=== PATIENT | female | born 1950 | race Caucasian/White ===

== ENCOUNTER 2021-12-11 08:41 | Inpatient (IN) ==
--- NOTE | 2021-12-11 08:54 | Emergency Department Note ---
Extremity Problem HPI General Chief complaint: Trauma Stated complaint: Fall, left foot rotation Time Seen by Provider: 12/11/21 08:51 Source: EMS Mode of arrival: EMS Limitations: no limitations History of Present Illness HPI Narrative: Narrative: Patient presents to the emergency department with left hip pain. She reports she tripped last night and fell on her left side she complains of pain in the left elbow and left hip. Denies hitting her head or loss of consciousness she denies headache. She is not on any anticoagulation. Her pain is 10 out of 10. Pain is nonradiating she is unable to bear weight. She states she did not come in to the hospital last night because she does not like hospitals. Patient reports she drinks 2 to 3 glasses of wine a night and 3-4 shots of kevin. No history of alcohol withdrawal symptoms or seizures. Related Data Home Medications Medication Instructions Recorded Confirmed metoprolol succinate 25 mg 25 mg PO DAILY 07/26/19 12/11/21 tablet,extended release 24 hr tramadol 50 mg tablet 1 - 2 tab PO Q4-6HP PRN Pain 12/11/21 12/11/21 Allergies Allergy/AdvReac Type Severity Reaction Status Date / Time No Known Drug Allergies Allergy Unverified 02/08/17 13:52 Review of Systems ROS ROS Narrative: Narrative: All systems ED: reviewed and negative except as stated. [facility] Narrative Patient History Narrative: Narrative: Medical/Surgical/Family History All Active Problems (Updated 12/11/21 @ 13:08 by Mahendra Blanco MD) Macrocytic anemia (Acute) Closed intertrochanteric fracture of left femur (Acute) Closed olecranon fracture (Acute) Social History Smoking Status: Unknown if ever smoked Exam Narrative Narrative: Narrative: Vital signs noted General: Awake. Alert. Mild distress HEENT: NCAT PERRL EOMI. No conjunctivitis. Membranes moist. Neck: Supple, trachea midline Cardiovascular: RRR. No murmur. No rubs. No gallops. Respiratory: No respiratory distress. Breath sounds equal. Lungs clear. Gastrointestinal: Soft. No tenderness Musculoskeletal: Pain to palpation of the left hip, swelling of the left elbow, no tenderness to the left wrist Skin: Warm. Dry. No rash Neurologic: Alert and oriented x3 moves all extremities equally and fully, speech is fluent face is symmetric General Limitations: no limitations Course Vital Signs Vital signs: Vital Signs Temperature 98.1 F 12/11/21 08:45 Pulse Rate 117 H 12/11/21 08:45 Respiratory Rate 20 12/11/21 08:45 Blood Pressure 143/92 12/11/21 08:45 Pulse Oximetry (%) 97 12/11/21 08:45 Oxygen Delivery Method 12/11/21 08:45 Temperature 98.1 F 12/11/21 11:39 Pulse Rate 82 12/11/21 11:39 Respiratory Rate 18 12/11/21 11:39 Blood Pressure 125/75 12/11/21 11:39 Pulse Oximetry (%) 100 12/11/21 11:39 Oxygen Delivery Method 12/11/21 11:38 MDM MDM Narrative Medical decision making narrative: Narrative: Patient was found to have left intertrochanteric fracture and transversely oriented intra-articular fracture involving the olecranon of the proximal ulna. Patient's labs are consistent with a macrocytic anemia. She has not had labs obtained in the last 2 years appears to be slightly decreased from her baseline. Spoke with Dr. Tarango, patient will be admitted to the hospitalist. Lab Data Result diagrams: 12/11/21 09:01 12/11/21 09:01 Labs: Lab Results 12/11/21 12/11/21 12/11/21 Range/Units 09: 09:01 10:03 WBC 7.5 (4.5-11.0) K/mcL RBC 1.91 L (3.59-5.38) M/mcL Hgb 8.6 L (11.2-15.7) g/dL Hct 25.8 L (34.1-44.9) % MCV 135.1 H (80.0-100.0) fL MCH 45.0 H (26.0-34.0) pg MCHC 33.3 (31.0-36.0) g/dL RDW 15.6 H (11.5-14.5) % Plt Count 157 (140-440) K/mcL MPV 10.6 H (7.4-10.4) fL Immature Gran % (Auto) 0.3 (0.0-0.5) % Neut % (Auto) 78.4 H (38.0-78.0) % Lymph % (Auto) 12.7 L (15.5-49.0) % [place] % (Auto) 7.2 (1.0-12.0) % Eos % (Auto) 0.5 (0.0-7.0) % Baso % (Auto) 0.9 (0.0-2.0) % Lymph # (Auto) 0.96 L (1.50-4.80) K/mcL [place] # (Auto) 0.54 (0.10-0.90) K/mcL Eos # (Auto) 0.04 (0.00-0.70) K/mcL Baso # (Auto) 0.07 (0.00-0.30) K/mcL Immature Gran # 0.02 (0.00-0.05) K/mcl Absolute Neutrophils 5.90 (1.80-8.00) K/mcL PT (11.9-14.5) sec INR (0.9-1.1) Sodium 127 L (133-145) mmol/L Potassium 4.8 (3.3-5.1) mmol/L Chloride 97 (96-108) mmol/L Carbon Dioxide 16 L (22-30) mmol/L Anion Gap 14.0 (8.0-16.0) BUN 11 (8-23) mg/dL Creatinine 1.1 (0.6-1.1) mg/dL GFR Calculation 50 Glucose 98 (70-105) mg/dL Osmolality (280-300) mOSM/kg Uric Acid (2.5-8.0) mg/dL Calcium 8.1 L (8.6-10.4) mg/dL Total Bilirubin 0.4 (0.1-1.0) mg/dL AST 35 H (<32) U/L ALT 22 (<40) U/L Alkaline Phosphatase 104 (39-117) U/L Total Protein 5.6 L (5.9-8.4) gm/dL Albumin 2.9 L (3.2-5.2) gm/dL Globulin 2.7 (2.2-3.7) gm/dL Albumin/Globulin Ratio 1.1 (1.0-2.3) Vitamin B12 457.9 (232.0-1245.0) pg/mL Folate (4.2-19.9) ng/mL Urine Color Urine Appearance (Clear) Urine pH (5.0-9.0) Ur Specific [place] (1.000-1.035) Urine Protein (Negative) mg/dL Urine Glucose (UA) (Negative) mg/dL Urine Ketones (Negative) mg/dL Urine Occult Blood (Negative) vimal/mcL Urine Nitrate (Negative) Urine Bilirubin (Negative) mg/dL Urine Urobilinogen mg/dL Ur Leukocyte Esterase (Negative) /uL Urine RBC (0-3) /hpf Urine WBC (0-4) /hpf Ur Squamous Epith Cells (0-4) /hpf Urine Bacteria (0) /hpf Ur Culture Indicated? Urine Osmolality (80-1000) mOSM/kg Ur Random Creatinine (28.0-217.0) mg/dL Ur Random Sodium mmol/L 12/11/21 12/11/21 12/11/21 Range/Units 10:03 10:03 10:20 WBC (4.5-11.0) K/mcL RBC (3.59-5.38) M/mcL Hgb (11.2-15.7) g/dL Hct (34.1-44.9) % MCV (80.0-100.0) fL MCH (26.0-34.0) pg MCHC (31.0-36.0) g/dL RDW (11.5-14.5) % Plt Count (140-440) K/mcL MPV (7.4-10.4) fL Immature Gran % (Auto) (0.0-0.5) % Neut % (Auto) (38.0-78.0) % Lymph % (Auto) (15.5-49.0) % [place] % (Auto) (1.0-12.0) % Eos % (Auto) (0.0-7.0) % Baso % (Auto) (0.0-2.0) % Lymph # (Auto) (1.50-4.80) K/mcL [place] # (Auto) (0.10-0.90) K/mcL Eos # (Auto) (0.00-0.70) K/mcL Baso # (Auto) (0.00-0.30) K/mcL Immature Gran # (0.00-0.05) K/mcl Absolute Neutrophils (1.80-8.00) K/mcL PT 14.4 (11.9-14.5) sec INR 1.1 (0.9-1.1) Sodium (133-145) mmol/L Potassium (3.3-5.1) mmol/L Chloride (96-108) mmol/L Carbon Dioxide (22-30) mmol/L Anion Gap (8.0-16.0) BUN (8-23) mg/dL Creatinine (0.6-1.1) mg/dL GFR Calculation Glucose (70-105) mg/dL Osmolality (280-300) mOSM/kg Uric Acid (2.5-8.0) mg/dL Calcium (8.6-10.4) mg/dL Total Bilirubin (0.1-1.0) mg/dL AST (<32) U/L ALT (<40) U/L Alkaline Phosphatase (39-117) U/L Total Protein (5.9-8.4) gm/dL Albumin (3.2-5.2) gm/dL Globulin (2.2-3.7) gm/dL Albumin/Globulin Ratio (1.0-2.3) Vitamin B12 (232.0-1245.0) pg/mL Folate 3.1 L (4.2-19.9) ng/mL Urine Color Urine Appearance (Clear) Urine pH (5.0-9.0) Ur Specific [place] (1.000-1.035) Urine Protein (Negative) mg/dL Urine Glucose (UA) (Negative) mg/dL Urine Ketones (Negative) mg/dL Urine Occult Blood (Negative) vimal/mcL Urine Nitrate (Negative) Urine Bilirubin (Negative) mg/dL Urine Urobilinogen mg/dL Ur Leukocyte Esterase (Negative) /uL Urine RBC (0-3) /hpf Urine WBC (0-4) /hpf Ur Squamous Epith Cells (0-4) /hpf Urine Bacteria (0) /hpf Ur Culture Indicated? Urine Osmolality 430 (80-1000) mOSM/kg Ur Random Creatinine (28.0-217.0) mg/dL Ur Random Sodium 76 mmol/L 12/11/21 12/11/21 12/11/21 Range/Units 10:20 10:23 11:04 WBC (4.5-11.0) K/mcL RBC (3.59-5.38) M/mcL Hgb (11.2-15.7) g/dL Hct (34.1-44.9) % MCV (80.0-100.0) fL MCH (26.0-34.0) pg MCHC (31.0-36.0) g/dL RDW (11.5-14.5) % Plt Count (140-440) K/mcL MPV (7.4-10.4) fL Immature Gran % (Auto) (0.0-0.5) % Neut % (Auto) (38.0-78.0) % Lymph % (Auto) (15.5-49.0) % [place] % (Auto) (1.0-12.0) % Eos % (Auto) (0.0-7.0) % Baso % (Auto) (0.0-2.0) % Lymph # (Auto) (1.50-4.80) K/mcL [place] # (Auto) (0.10-0.90) K/mcL Eos # (Auto) (0.00-0.70) K/mcL Baso # (Auto) (0.00-0.30) K/mcL Immature Gran # (0.00-0.05) K/mcl Absolute Neutrophils (1.80-8.00) K/mcL PT (11.9-14.5) sec INR (0.9-1.1) Sodium (133-145) mmol/L Potassium (3.3-5.1) mmol/L Chloride (96-108) mmol/L Carbon Dioxide (22-30) mmol/L Anion Gap (8.0-16.0) BUN (8-23) mg/dL Creatinine (0.6-1.1) mg/dL GFR Calculation Glucose (70-105) mg/dL Osmolality 281 (280-300) mOSM/kg Uric Acid 7.3 (2.5-8.0) mg/dL Calcium (8.6-10.4) mg/dL Total Bilirubin (0.1-1.0) mg/dL AST (<32) U/L ALT (<40) U/L Alkaline Phosphatase (39-117) U/L Total Protein (5.9-8.4) gm/dL Albumin (3.2-5.2) gm/dL Globulin (2.2-3.7) gm/dL Albumin/Globulin Ratio (1.0-2.3) Vitamin B12 (232.0-1245.0) pg/mL Folate (4.2-19.9) ng/mL Urine Color Yellow Urine Appearance Cloudy A (Clear) Urine pH >= 9.0 (5.0-9.0) Ur Specific [place] 1.010 (1.000-1.035) Urine Protein Negative (Negative) mg/dL Urine Glucose (UA) Negative (Negative) mg/dL Urine Ketones Negative (Negative) mg/dL Urine Occult Blood Trace-intact A (Negative) vimal/mcL Urine Nitrate Negative (Negative) Urine Bilirubin Negative (Negative) mg/dL Urine Urobilinogen Normal mg/dL Ur Leukocyte Esterase Negative (Negative) /uL Urine RBC 5 H (0-3) /hpf Urine WBC 1 (0-4) /hpf Ur Squamous Epith Cells 14 H (0-4) /hpf Urine Bacteria Many A (0) /hpf Ur Culture Indicated? No Urine Osmolality (80-1000) mOSM/kg Ur Random Creatinine 60.0 (28.0-217.0) mg/dL Ur Random Sodium mmol/L EKG Data EKG #1: EKG attestation: Yes I reviewed and interpreted this EKG., Yes There are no EKG findings of acute coronary syndrome and Yes This EKG will be read by manager investment EKG results narrative: EKG shows normal sinus rhythm with a rate of 86 there is borderline left axis deviation there is normal R wave progression there is no evidence of acute ische mary QTC is 437 Discharge Plan Patient/Caregiver Discharge Instructions Pt seen by VIRTUAL CUSTOMER ASSISTANT/PA only: No Clinical Impression: Closed intertrochanteric fracture of left femur, Closed olecranon fracture Patient Disposition: Xfer As Inpt ([facility]) Discharge Date/Time: 12/11/21 11:30
--- NOTE | 2021-12-11 09:29 | XRay Report ---
HISTORY: Fell, left hip injury FINDINGS: There is an acute, nondisplaced intertrochanteric fracture of the proximal left femur. There is no impaction or angulation. The femoral head and hip joint are normal. There is no underlying arthritis. Large amount calcified plaque is present in the arteries within the pelvis and thighs. IMPRESSION: Intertrochanteric fracture Interpreted and Authenticated by: Aston Arboleda 12/11/21
--- NOTE | 2021-12-11 09:30 | XRay Report ---
HISTORY: Fell, left elbow injury FINDINGS: There is an acute transversely oriented intra-articular fracture involving the olecranon of the proximal ulna. There is moderate overlying soft tissue swelling and there is also a large joint effusion. The bones are osteoporotic. No other fracture is present. Joint spaces are normal in width and alignment and there is no spur formation. IMPRESSION: Intra-articular fracture of the proximal ulna Interpreted and Authenticated by: Aston Arboleda 12/11/21
--- NOTE | 2021-12-11 09:31 | XRay Report ---
HISTORY: Fell, multiple injuries FINDINGS: Lungs are clear and well expanded. The heart size, pulmonary vasculature, mediastinum, clair and pleura are normal. There is an old healed fracture posterior laterally in the left seventh rib. No acute fracture is seen within the thorax. Severe atherosclerotic disease is seen is seen in the splenic artery. Comparison with the prior x-ray done on 11/26/16 shows little change. IMPRESSION: Normal chest Interpreted and Authenticated by: Aston Arboleda 12/11/21
[2021-12-11 09:40] LABS: Basophils # (Auto) 0.07 K/mcL (0.00-0.30); Basophils % (Auto) 0.9 % (0.0-2.0); Eosinophils # (Auto) 0.04 K/mcL (0.00-0.70); Eosinophils % (Auto) 0.5 % (0.0-7.0); Hematocrit 25.8 % (34.1-44.9); Hemoglobin 8.6 g/dL (11.2-15.7); Lymphocytes # (Auto) 0.96 K/mcL (1.50-4.80); Lymphocytes % (Auto) 12.7 % (15.5-49.0); Mean Cell Volume 135.1 fL (80.0-100.0); Mean Corpuscular HGB Conc 33.3 g/dL (31.0-36.0); Mean Platelet Volume 10.6 fL (7.4-10.4); Monocytes # (Auto) 0.54 K/mcL (0.10-0.90); Monocytes % (Auto) 7.2 % (1.0-12.0); Neutrophils % (Auto) 78.4 % (38.0-78.0); Platelet Count 157 K/mcL (140-440); RBC 1.91 M/mcL (3.59-5.38); Red Cell Distribution Width 15.6 % (11.5-14.5); WBC 7.5 K/mcL (4.5-11.0)
[2021-12-11] MEDS: HYDROmorphone 0.5 MG/0.5 ML SYRINGE IV PRN ×2 (09:48→11:27)
[2021-12-11 10:00] LABS: ALT/SGPT 22 U/L (<40); AST/SGOT 35 U/L (<32); Albumin 2.9 gm/dL (3.2-5.2); Albumin/Globulin Ratio 1.1 (1.0-2.3); Alkaline Phosphatase 104 U/L (39-117); Bilirubin,Total 0.4 mg/dL (0.1-1.0); Blood Urea Nitrogen 11 mg/dL (8-23); Calcium 8.1 mg/dL (8.6-10.4); Carbon Dioxide 16 mmol/L (22-30); Chloride 97 mmol/L (96-108); Globulin 2.7 gm/dL (2.2-3.7); Glomerular Filtration Rate 50; Glucose 98 mg/dL (70-105)
--- NOTE | 2021-12-11 10:45 | Internal Med History&Physical ---
HPI History of Present Illness Patient information: Note initiated : 12/11/21 at 10:39 am Service Date, if different from initiated Date: [] Patient: Nadia Miller a 71 y/o F admitted on for Fall, left foot rotation. Chief Complaint: [] History of present illness: Ms. Kirk Jaramillo is a 71 year old F Who presents to the ED with left hip and elbow pain. Patient states she is getting up out of her recliner to go to bed last night and got caught up in a blanket tripped and fell on her left side with immediate pain. She is slept on through the night and came in the ER because the worsening pain. Found to have a left hip fracture intertrochanteric and a left elbow fracture. Labs remarkable for anemia which is macrocytic and is chronic she has a history of MDS and follows with oncology. She has a hyponatremia which appears to be chronic and also in metabolic acidosis. Review of Systems: Pertinent positives as above. Denies headache/fever/chills/nausea/vomiting/chest or abdominal pain/cough/dyspnea/diarrhea. Remaining 10 point review of system reviewed negative PFSH PFSH All Active Problems (Updated 07/26/19 @ 21:22 by Ricco Madison PA-C) Macrocytic anemia (Acute) Social History (Updated 12/11/21 @ 10:42 by Carmelo Elizalde DO) smoking status: Current every day smoker additional history: Social history: Patient smokes half pack cigarettes per day and has 1 to 2 glasses of wine per night MEDS/ALLERGIES Home Medications and Allergies Home Medications Medication Instructions Recorded Confirmed Type Metoprolol Succinate/Hctz 02/08/17 History metoprolol succinate 25 mg 25 mg PO DAILY 07/26/19 07/26/19 History tablet,extended release 24 hr Allergies Allergy/AdvReac Type Severity Reaction Status Date / Time No Known Drug Allergies Allergy Unverified 02/08/17 13:52 EXAM Constitutional Vitals: Temp Pulse Resp BP Pulse Ox O2 Del Method 98.1 F 86 18 123/79 98 12/11/21 08:57 12/11/21 10:25 12/11/21 08:57 12/11/21 10:25 12/11/21 10:25 12/11/21 08:45 Exam: General: Alert, Awake, No acute Distress, frail and cachectic appearing Eyes/N/T: EOMI, PERRL, Head/Neck: neck supple, normocephalic atraumatic CV: RRR, No murmurs, normal s1/s2 Pulm: Clear b/l, no wheezing/rhonchi/rales Abd: soft, nontender, +BS x4 Ext: no clubbing/cyanosis/edema, swollen left elbow Neuro: Alert, no focal deficits, moves all extremities, CN 2-12 grossly intact, sensations intact b/l upper/lower Skin: warm/dry DATA Data Completed and Pending Labs: Labs from last 24 hours 12/11/21 12/11/21 12/11/21 10:23 10:03 10:03 WBC RBC Hgb Hct MCV MCH MCHC RDW Plt Count MPV Immature Gran % (Auto) Neut % (Auto) Lymph % (Auto) [place] % (Auto) Eos % (Auto) Baso % (Auto) Lymph # (Auto) [place] # (Auto) Eos # (Auto) Baso # (Auto) Immature Gran # Absolute Neutrophils PT Pending INR Pending Sodium Potassium Chloride Carbon Dioxide Anion Gap BUN Creatinine GFR Calculation Glucose Osmolality Pending Uric Acid Pending Calcium Total Bilirubin AST ALT Alkaline Phosphatase Total Protein Albumin Globulin Albumin/Globulin Ratio Vitamin B12 Folate Pending 12/11/21 12/11/21 12/11/21 10:03 09:01 09:01 WBC 7.5 RBC 1.91 L Hgb 8.6 L Hct 25.8 L MCV 135.1 H MCH 45.0 H MCHC 33.3 RDW 15.6 H Plt Count 157 MPV 10.6 H Immature Gran % (Auto) 0.3 Neut % (Auto) 78.4 H Lymph % (Auto) 12.7 L [place] % (Auto) 7.2 Eos % (Auto) 0.5 Baso % (Auto) 0.9 Lymph # (Auto) 0.96 L [place] # (Auto) 0.54 Eos # (Auto) 0.04 Baso # (Auto) 0.07 Immature Gran # 0.02 Absolute Neutrophils 5.90 PT INR Sodium 127 L Potassium 4.8 Chloride 97 Carbon Dioxide 16 L Anion Gap 14.0 BUN 11 Creatinine 1.1 GFR Calculation 50 Glucose 98 Osmolality Uric Acid Calcium 8.1 L Total Bilirubin 0.4 AST 35 H ALT 22 Alkaline Phosphatase 104 Total Protein 5.6 L Albumin 2.9 L Globulin 2.7 Albumin/Globulin Ratio 1.1 Vitamin B12 Pending Folate A/P Narrative A/P Narrative: A: *Left hip & elbow fracture: *MDS with macrocytic anemia: Follows with director of compliance -get Retacrit infusions outpatient *Hyponatremia, chronic: *CKD III: *HTN: *Protein calorie malnutrition: Loss of subcutaneous fat and muscle *Tobacco abuse: P: -Hip and elbow per Ortho -Urine studies for hyponatremia -Monitor sodium. -Transfuse blood for < 7 -Continue home BB -Smoking cessation counseling> 3 minutes -PT/OT -Medication reconciliation -ppx: SCD and postop per Ortho Time Spent With Patient Time: Total time spent is greater than 50% in coordination of care (as documented) at patient's floor/unit and/or counseling patient: Total time spent with greater than 50% in coordination of care (as documented) at patient's floor/unit and/or counseling patient:: 50 - 70 minutes
[2021-12-11 11:02] LABS: INR 1.1 (0.9-1.1); Prothrombin Time 14.4 sec (11.9-14.5)
[2021-12-11 11:26] LABS: Appearance,Urine Cloudy (Clear); Bacteria,Urine MANY /hpf (0); Bilirubin,Urine Negative (Negative); Color,Urine Yellow; Culture Indicated,Urine No; Glucose,Urine (UA) Negative (Negative); Ketones,Urine Negative (Negative); Leukocyte Esterase,Urine Negative /uL (Negative); Nitrate,Urine Negative (Negative); PH,Urine >= 9.0 (5.0-9.0); Protein,Urine Negative (Negative); Urine Blood Trace-intact ery/mcL (Negative); Urine RBC 5 /hpf (0-3); Urine Squamous Epithelial Cell 14 /hpf (0-4); Urine WBC 1 /hpf (0-4); Urobilinogen,Urine Normal
[2021-12-11 11:33] LABS: Sodium, Urine Random 76 mmol/L
[2021-12-11 11:38] LABS: Osmolality,Urine 430 mOSM/kg (80-1000)
[2021-12-11] MEDS ORDERED: MAGNESIUM SULFATE 2 GM/50 ML BAG IV PRN (11:38)
[2021-12-11] MEDS ORDERED: ONDANSETRON 4 MG/2 ML VIAL IV PRN ×2 (11:38→14:52)
[2021-12-11] MEDS ORDERED: POTASSIUM CHLORIDE 20 MEQ TABLET PO PRN ×2 (11:38)
[2021-12-11] MEDS ORDERED: POTASSIUM CHLORIDE 40 MEQ in DEXTROSE 5% IN WATER 500 ML IV PRN (11:38)
[2021-12-11] MEDS ORDERED: SENNOSIDES 1 TABLET PO PRN (11:38)
[2021-12-11] MEDS ORDERED: 0.9 % SODIUM CHLORIDE 1,000 ML IV SCH (11:38)
[2021-12-11 12:41] LABS: Uric Acid 7.3 mg/dL (2.5-8.0)
[2021-12-11] MEDS ORDERED: ceFAZolin 1 GM VIAL IV ONE (13:05)
[2021-12-11] MEDS ORDERED: fentaNYL 100 MCG/2 ML VIAL IV ONE (13:20)
[2021-12-11] MEDS ORDERED: TRANEXAMIC ACID 1,000 MG/10 ML VIAL ONE (13:20)
[2021-12-11] MEDS ORDERED: DEXAMETHASONE 10 MG/ML VIAL ONE (13:20)
[2021-12-11] MEDS ORDERED: KETAMINE 50 MG/ML Syringe (ANEST) IV ONE (13:20)
[2021-12-11] MEDS ORDERED: LIDOCAINE HCL/PF 100 MG/5 ML SYRINGE IV ONE (13:20)
[2021-12-11] MEDS ORDERED: MAGNESIUM SULFATE 2 GM/50 ML BAG IV ONE (13:20)
[2021-12-11] MEDS ORDERED: ROPIVACAINE HCL/PF 30 ML VIAL IJ ONE (13:20)
[2021-12-11] MEDS ORDERED: ePHEDrine 50 MG/5 ML SYRINGE (ANEST) IV ONE (13:20)
[2021-12-11] MEDS ORDERED: PROPOFOL 200 MG/20 ML VIAL IV ONE (13:20)
[2021-12-11] MEDS ORDERED: ceFAZolin 2 GM in DEXTROSE 5% IN WATER 50 ML IV SCH (13:30)
[2021-12-11] MEDS ORDERED: PROMETHAZINE 25 MG/ML VIAL IV PRN (14:52)
[2021-12-11] MEDS ORDERED: NALOXONE HCL 0.4 MG/ML VIAL IV PRN (14:52)
[2021-12-11] MEDS ORDERED: LACTATED RINGERS 250 ML IV PRN (14:52)
[2021-12-11] MEDS ORDERED: diphenhydrAMINE 50 MG/ML VIAL IV PRN (14:52)
[2021-12-11] MEDS ORDERED: IPRATROPIUM/ALBUTEROL 3 ML AMPUL.NEB NEB PRN (14:52)
[2021-12-11] MEDS ORDERED: MEPERIDINE 25 MG/ML VIAL IV PRN (14:52)
[2021-12-11] MEDS ORDERED: LACTATED RINGERS 1,000 ML IV SCH (15:00)
--- NOTE | 2021-12-11 15:11 | Brief Operative Note ---
Brief Operative Note Date of procedure: 12/11/21 Pre-op diagnosis: 1)closed left hip intertrochanteric fracture, 2)closed left olecranon fx Post-op diagnosis: same Procedure: 1)Open treatment internal fixation of left intertrochanteric hip fracture 2)Open treatment internal fixation of left olecranon fracture Grafts/Implants: Yes ([place] short gamma nail, jovanni olecranon plate) Anesthesia: GLMA Findings: osteopenia, post fixation shows near anatomic alignment Complications: none Surgeon: Theodore Tarango Heat Treat Worker: Danny Hensley Estimated blood loss (cc): 150 Specimens Removed/Pathology: none sent Condition: stable Disposition: PACU
[2021-12-11] MEDS: fentaNYL 100 MCG/2 ML VIAL IV PRN ×4 (15:57→16:10)
--- NOTE | 2021-12-11 16:14 | Operative Note ---
DATE OF OPERATION: 12/11/2021 PREOPERATIVE DIAGNOSES: 1. Closed left intertrochanteric hip fracture. 2. Closed left olecranon fracture. POSTOPERATIVE DIAGNOSES: 1. Closed left intertrochanteric hip fracture. 2. Closed left olecranon fracture. PROCEDURE PERFORMED: 1. Open treatment and internal fixation of the left intertrochanteric hip fracture with intramedullary fixation using a short gamma nail. 2. Open treatment and internal fixation of the left closed olecranon fracture using a [place] locking plate. SURGEON: Theodore Tarango M.D. QUANTITATIVE DEVELOPER: Landen Hensley PA-C. The PA's assistance was required for the safe and efficient completion of the entire case. This provider's expertise and technical skill were required throughout the case. The PA assisted with preoperative coordination, intraoperative retraction, wound closure, dressing and splint application, as well as postoperative documentation and care coordination. ANESTHESIA: General. DRAINS: None. SPECIMENS: None. COMPLICATIONS: None. ESTIMATED BLOOD LOSS: 150 mL. POSTOPERATIVE CONDITION: Stable. INDICATIONS FOR SURGERY: This is a 71-year-old female who sustained a fall injuring her left elbow and hip. She was unable to bear weight. X-rays taken in the ER showed an intertrochanteric hip fracture as well as an olecranon fracture. FINDINGS AT SURGERY: As above. Post-fixation showed satisfactory fracture alignment and hardware position. There was significant osteopenia. PROCEDURE IN DETAIL: The patient had been seen preoperatively. Informed consent had been obtained after discussion of risks and benefits of surgery. Risks including, but not limited to, bleeding; infection; injury to nerves, blood vessels, surrounding structures; she did have profound anemia preoperatively, which I discussed significantly increased her risk of needing transfusion; nonunion or malunion of the fracture; failure of hardware fixation, this being increased given her osteopenia; possibility of needing further surgery, particularly the removal of the olecranon plate as she is very thin and that plate will likely be visible and symptomatic. She understood these risks and wished to proceed. Correct operative site was marked in preoperative holding, and patient was taken to the operating room. General anesthesia induced. She was carefully positioned on the fracture table and the left lower extremity was placed in some traction with some internal rotation. Fluoroscopy was brought in to verify reduction, which was essentially anatomic. The left hip and leg was then carefully prepped and draped in normal sterile fashion. A timeout was performed verifying patient name, operative site, and plan. An [place] shower curtain drape was placed. Incision was made proximal to the greater trochanter with a scalpel through skin and subcutaneous tissue in line with the femoral shaft. Hemostasis was obtained with Bovie cautery. We continued with the Bovie through the IT band and then blunt finger dissection taken down onto the trochanter. We then used the guidewire under fluoroscopic guidance and placed this at the tip and advanced this distally. We checked the lateral. We did shift the pin posterior with the honeycomb drill guide. We liked the second pin placement, so we went ahead and used the opening reamer with a second pin. A short gamma nail was opened and passed over the guide pin. We positioned this so the lag screw would be central in the neck on AP view and then made a stab incision laterally. The sleeve was passed through the jig down to bone. We drilled the near cortex and then a threaded guide pin was passed up into the femoral head, adjusting so we were central on the AP and lateral view. This was taken up just below the articular surface. Length was read and then lag screw was opened. We advanced the lag screw until we were within less than a centimeter of the articular surface on both AP and lateral views, and then locked the lag screw proximally until it was fully locked and then we backed off a quarter turn to allow sliding compression. We then removed the sleeve and guide pin and placed the sleeves for the distal static position. A stab incision was made. We went ahead and spread down to bone and then drilled bicortically, and a screw was placed, getting excellent cortical fixation. We removed the jig and then placed a 0 end cap on the nail. Final fluoro images were taken, AP proximal and distal and lateral proximal and distal and saved. We irrigated copiously with IrriSept. After a minute, irrigated with saline, and then #1 Vicryl was used to close the IT band, 2-0 Monocryl was used for subcutaneous closure and then stacey for skin. Xeroform and sterile dressing were applied. The patient was then removed from the fracture table and placed on a regular OR table on a beanbag in the right lateral decubitus position. The beanbag was suctioned and then the left upper extremity was carefully prepped and draped in normal sterile fashion. A timeout was performed, verifying the patient operative plan again. An Esmarch was used to exsanguinate the extremity, and tourniquet was inflated. A midline incision was made over the proximal ulna through skin and subcutaneous tissue. We continued down onto bone and then used a Bovie to incise the periosteum. We then used an AO elevator to try and expose a small portion and visualized the fracture site. We chose the shortest Claudia olecranon plate as this gave us satisfactory fixation distal to the fracture. We positioned this best fit and then drilled and placed a screw in the slotted position, nonlocking. We pinned proximally with a K-wire and then checked with fluoroscopy. Plate position looked good and the fracture was anatomically aligned, so we went ahead and drilled and placed another shaft screw, a locker bicortically. We then went proximally and drilled our home run screw and placed a locker. We then drilled the remaining screws, placing them unicortical locking. K-wires were removed. We checked with fluoroscopy, AP and lateral views, which showed hardware in satisfactory position. The joint surface was anatomically aligned. We took the elbow through range of motion including flexion, extension, supination and pronation. There was no crepitation or significant block of motion other than very terminal extension. We then saved those images. We irrigated with IrriSept, after a minute irrigated with saline, and then used a 2-0 Vicryl to close deep soft tissue as best as that I could over the plate, then 2-0 Monocryl was used for subcutaneous, and a 4-0 nylon running for skin. Xeroform and a sterile dressing were applied. Arm was placed in a sling and the patient was awakened, extubated, and transferred to recovery in stable condition. [email or web address] Job ID: [id number] Doc ID: [id number] Theodore Tarango MD
[2021-12-11] MEDS: HYDROmorphone 0.5 MG/0.5 ML SYRINGE IV SCH ×2 (16:24→17:28)
[2021-12-11] MEDS ORDERED: HYDROmorphone 0.5 MG/0.5 ML SYRINGE ONE (16:35)
[2021-12-11] MEDS ORDERED: ACETAMINOPHEN 650 MG/65 ML BAG IV SCH (16:35)
[2021-12-11] MEDS ORDERED: DIAZEPAM 10 MG/2 ML SYRINGE IV SCH (16:50)
[2021-12-11] MEDS ORDERED: DIAZEPAM 10 MG/2 ML SYRINGE ONE (17:01)
[2021-12-11] MEDS ORDERED: LORazepam 2 MG/ML VIAL IV PRN (18:35)
[2021-12-11] MEDS ORDERED: HALOPERIDOL LACTATE 5 MG/ML VIAL IM PRN (18:35)
[2021-12-11] MEDS ORDERED: chlordiazePOXIDE 25 MG CAPSULE PO PRN (18:35)
[2021-12-11] MEDS: 0.9 % SODIUM CHLORIDE 10 ML SYRINGE IV SCH ×3 (19:05→21:00)
[2021-12-11] MEDS ORDERED: FOLIC ACID 1 MG TABLET PO ONE (19:45)
[2021-12-11] MEDS ORDERED: THIAMINE 100 MG/ML VIAL ONE (19:58)
[2021-12-11] MEDS: THIAMINE 100 MG in 0.9 % SODIUM CHLORIDE 50 ML IV SCH (20:03)
[2021-12-11] MEDS: SODIUM BICARBONATE 650 MG TABLET PO SCH (20:59)
[2021-12-11] MEDS: SODIUM CHLORIDE 1 GM TABLET PO SCH (20:59)
[2021-12-11] MEDS: DOCUSATE SODIUM 100 MG CAPSULE PO SCH (20:59)
[2021-12-11] MEDS: ceFAZolin 1 GM VIAL IV SCH (21:00)
[2021-12-12] MEDS: ceFAZolin 1 GM VIAL IV SCH (05:35)
[2021-12-12] MEDS: 0.9 % SODIUM CHLORIDE 10 ML SYRINGE IV SCH ×6 (05:35→20:27)
[2021-12-12 07:34] LABS: Basophils # (Auto) 0.02 K/mcL (0.00-0.30); Basophils % (Auto) 0.3 % (0.0-2.0); Eosinophils # (Auto) 0 K/mcL (0.00-0.70); Eosinophils % (Auto) 0 % (0.0-7.0); Hematocrit 20.4 % (34.1-44.9); Hemoglobin 7.2 g/dL (11.2-15.7); Lymphocytes % (Auto) 12.2 % (15.5-49.0); Mean Cell Volume 126.7 fL (80.0-100.0); Mean Corpuscular HGB Conc 35.3 g/dL (31.0-36.0); Monocytes # (Auto) 0.61 K/mcL (0.10-0.90); Monocytes % (Auto) 8.2 % (1.0-12.0); Neutrophils % (Auto) 78.8 % (38.0-78.0); Platelet Count 143 K/mcL (140-440); RBC 1.61 M/mcL (3.59-5.38); Red Cell Distribution Width 14.9 % (11.5-14.5); WBC 7.4 K/mcL (4.5-11.0)
[2021-12-12] MEDS: HYDROcodone/APAP 5/325MG TABLET PO PRN ×3 (07:41→20:27)
--- NOTE | 2021-12-12 07:49 | Orthopedic Progress Note ---
SUBJECTIVE Subjective Patient information: Note initiated : 12/12/21 at 7:47 am Service Date, if different from initiated Date: [] Patient: Nadia Miller a 71 y/o F admitted on 12/11/21 for Fall, left foot rotation. Chief Complaint: unable to extend L wrist and hand. Constitutional Vitals: Vital Signs Temp Pulse Resp BP Pulse Ox O2 Del Method O2 Flow Rate 97.2 F 85 20 126/76 100 2 12/11/21 17:44 12/11/21 17:44 12/11/21 17:44 12/11/21 17:44 12/11/21 20:00 12/11/21 20:00 12/11/21 17:05 Period Temp Pulse Resp BP Sys/Mcpherson Pulse Ox O2 Del Method O2 Flow Rate Last 24 Hr 97.2 F-98.3 F 70-117 9-33 71-193/46-134 88-100 Aerosol Mask- Simple Mask 2-6 Intake and Output 12/11/21 12/12/21 12/12/21 21:59 05:59 13:59 Intake Total 2765 101 Output Total 149 375 Balance 2616 -274 Weight 97 lb 12.8 oz Intake & Output: Intake & Output 12/11/21 12/12/21 12/12/21 21:59 05:59 13:59 Intake Total 2765 101 Output Total 149 375 Balance 2616 -274 Weight 97 lb 12.8 oz Intake: IV 65 101 Vitamin B1 100 mg In Sodium 51 Chloride 0.9% 50 ml @ 50 mls/hr IV DAILY [facility] Rx#:[id number] Ancef 2 gm In Dextrose 5% in 50 Water 50 ml @ 100 mls/hr IV PREOP [facility] Rx#:[id number] IV - Manual Only 2700 Output: Urine Catheter Amount 100 375 Estimated Blood Loss 49 Other: Urine Appearance Clear Clear Urine Color Yellow Light Sharyn OBJ DATA Labs CBC & Chem 7: 12/12/21 05:55 12/11/21 09:01 Labs: Abnormal Lab Results bandages c/d/i unable to ext wrist and hand. No sensation to hand. 12/12/21 12/11/21 12/11/21 05:55 11:04 10:03 RBC 1.61 L Hgb 7.2 L Hct 20.4 L* MCV 126.7 H MCH 44.7 H RDW 14.9 H MPV Neut % (Auto) 78.8 H Lymph % (Auto) 12.2 L Lymph # (Auto) 0.90 L Sodium Carbon Dioxide Calcium AST Total Protein Albumin Folate 3.1 L Urine Appearance Cloudy A Urine Occult Blood Trace-intact A Urine RBC 5 H Ur Squamous Epith Cells 14 H Urine Bacteria Many A 12/11/21 12/11/21 09:01 09:01 RBC 1.91 L Hgb 8.6 L Hct 25.8 L MCV 135.1 H MCH 45.0 H RDW 15.6 H MPV 10.6 H Neut % (Auto) 78.4 H Lymph % (Auto) 12.7 L Lymph # (Auto) 0.96 L Sodium 127 L Carbon Dioxide 16 L Calcium 8.1 L AST 35 H Total Protein 5.6 L Albumin 2.9 L Folate Urine Appearance Urine Occult Blood Urine RBC Ur Squamous Epith Cells Urine Bacteria Meds: Medications Acetaminophen (Acetaminophen 325 Mg Tablet) 650 mg PO Q6HP PRN; Protocol PRN Reason: Per Pain Protocol/Fever > 101 Hydrocodone Bitart/Acetaminophen (Hydrocodone/Apap 5/325mg Tablet) 1 tab PO Q4HP PRN PRN Reason: PAIN LEVEL 3-6 Last Admin: 12/12/21 07:41 Dose: 1 tab Albuterol/Ipratropium (Ipratropium/Albuterol 3 Ml Ampul.Neb) 3 ml NEB Q4HP PRN PRN Reason: Shortness Of Breath Chlordiazepoxide HCl (Chlordiazepoxide 25 Mg Capsule) 25 mg PO Q4HP PRN PRN Reason: Alcohol Withdrawal/Assess CIWA Docusate Sodium (Docusate Sodium 100 Mg Capsule) 100 mg PO BID [facility] Last Admin: 12/11/21 20:59 Dose: 100 mg Enoxaparin Sodium (Enoxaparin 30 Mg/0.3 Ml Syringe) 40 mg SQ DAILY [facility] Folic Acid (Folic Acid 1 Mg Tablet) 5 mg PO DAILY [facility] Haloperidol Lactate (Haloperidol Lactate 5 Mg/Ml Vial) 0.5 mg IM Q2HP PRN PRN Reason: Alcohol Withdrawal/Assess CIWA Potassium Chloride 40 meq/ (Dextrose) 520 mls @ 130 mls/hr IV UD PRN PRN Reason: Potassium < 3 Magnesium Sulfate (Magnesium Sulfate) 2 gm in 50 mls @ 50 mls/hr IV UD PRN PRN Reason: Magnesium </= 1.6 Thiamine HCl 100 mg/ Sodium (Chloride) 51 mls @ 50 mls/hr IV DAILY [facility] Last Infusion: 12/12/21 02:05 Dose: Infused Iron Carb/Multivit/[place]/Folic Acid (Multivit,Ther Iron,Ca,Fa & Min 1 Tablet) 1 tab PO DAILY [facility] Lorazepam (Lorazepam 2 Mg/Ml Vial) 0 mg IV Q4HP PRN; Protocol PRN Reason: Alcohol Withdrawal/Assess CIWA Morphine Sulfate (Morphine 4 Mg/Ml Vial) 0 mg IV Q3HP PRN PRN Reason: Pain Ondansetron HCl (Ondansetron 4 Mg/2 Ml Vial) 4 mg IV Q4HP PRN PRN Reason: Nausea And Vomiting Polyethylene Glycol (Polyethylene Glycol 3350 17 Gm Packet) 17 gm PO DAILYP PRN PRN Reason: Constipation Potassium Chloride (Potassium Chloride 20 Meq Tablet) 40 meq PO UD PRN PRN Reason: Potssium is 3-3.5 Potassium Chloride (Potassium Chloride 20 Meq Tablet) 40 meq PO UD PRN PRN Reason: Potassium < 3 Senna (Sennosides 1 Tablet) 2 tab PO DAILYP PRN PRN Reason: Constipation Sodium Bicarbonate (Sodium Bicarbonate 650 Mg Tablet) 1,300 mg PO BID [facility] Stop: 12/12/21 09:01 Last Admin: 12/11/21 20:59 Dose: 1,300 mg Sodium Chloride (0.9 % Sodium Chloride 10 Ml Syringe) 10 ml IV Q8 [facility] Last Admin: 12/12/21 05:35 Dose: 10 ml Sodium Chloride (Sodium Chloride 1 Gm Tablet) 2 gm PO BID [facility] Stop: 12/12/21 09:01 Last Admin: 12/11/21 20:59 Dose: 2 gm Sodium Chloride (0.9 % Sodium Chloride 10 Ml Syringe) 10 ml IV Q8 [facility] Last Admin: 12/12/21 05:35 Dose: Not Given A/P Assessment and plan (1) Closed intertrochanteric fracture of left femur: Status: Acute Comment: Mobilize with PT Qualifiers: Encounter type: initial encounter Fracture alignment: nondisplaced Qualified Code(s): S72.145A - Nondisplaced intertrochanteric fracture of left femur, initial encounter for closed fracture (2) Closed olecranon fracture: Status: Acute Comment: Nerve injury due to block versus slow to wake up motor. will have anesthesia evaluate. Qualifiers: Encounter type: initial encounter Laterality: left Qualified Code(s): S52.022A - Displaced fracture of olecranon process without intraarticular extension of left ulna, initial encounter for closed fracture Time Spent With Patient Time: Total time spent is greater than 50% in coordination of care (as documented) at patient's floor/unit and/or counseling patient:
--- NOTE | 2021-12-12 07:51 | EKG ---
[facility] Test Date: 2021-12-11 Pat Name: Nadia Jaramillo Department: ED Room: Gender: Female [employer] Specials: SB : 1950 Requested By: Mahendra Blanco Order Number: [id number] Reading MD: Walt Yang Measurements Intervals [place] Rate: 86 P: 52 SC: 175 QRS: -26 QRSD: 80 T: 50 QT: 365 QTc: 437 Interpretive Statements Sinus rhythm Borderline left axis deviation Electronically Signed On 12-12-2021 7:51:06 PDT by Walt Yang /store/M0/[id number]
[2021-12-12 08:07] LABS: ALT/SGPT 16 U/L (<40); AST/SGOT 21 U/L (<32); Albumin 2.8 gm/dL (3.2-5.2); Albumin/Globulin Ratio 1.2 (1.0-2.3); Alkaline Phosphatase 89 U/L (39-117); Bilirubin,Direct < 0.2 mg/dL (0-0.3); Bilirubin,Total 0.4 mg/dL (0.1-1.0); Blood Urea Nitrogen 13 mg/dL (8-23); Calcium 7.9 mg/dL (8.6-10.4); Carbon Dioxide 19 mmol/L (22-30); Chloride 101 mmol/L (96-108); Globulin 2.4 gm/dL (2.2-3.7); Glomerular Filtration Rate 50; Glucose 147 mg/dL (70-105); Lactate Dehydrogenase 158 U/L (135-225); Phosphorous 4.5 mg/dL (2.5-4.5); Triglycerides 43 mg/dL (<150); Uric Acid 5.3 mg/dL (2.5-8.0)
--- NOTE | 2021-12-12 08:21 | XRay Report ---
HISTORY: FINDINGS: IMPRESSION: 0.5 minutes of fluoroscopy time was used Interpreted and Authenticated by: Aston Arboleda 12/12/21
--- NOTE | 2021-12-12 08:24 | Internal Med Progress Note ---
SUBJECTIVE Subjective Patient information: Note initiated : 12/12/21 at 8:19 am Service Date, if different from initiated Date: [] Patient: Nadia Miller a 71 y/o F admitted on 12/11/21 for Fall, left foot rotation. Chief Complaint: [] Interval history: History of present illness: Ms. Kirk Jaramillo is a 71 year old F Who presents to the ED with left hip and elbow pain. Patient states she is getting up out of her recliner to go to bed last night and got caught up in a blanket tripped and fell on her left side with immediate pain. She is slept on through the night and came in the ER because the worsening pain. Found to have a left hip fracture intertrochanteric and a left elbow fracture. Labs remarkable for anemia which is macrocytic and is chronic she has a history of MDS and follows with oncology. She has a hyponatremia which appears to be chronic and also in metabolic acidosis. 12/12 Patient slept okay. No overnight event or new complaints. Hemoglobin 7.2. Urine output borderline low during the night but is picking up. Transfuse 1 unit. Sodium better and acid-base status improving. Appears to be folate deficient. Supplemental folate. Review of Systems: Some headaches. Denies fever/chills/nausea/vomiting/chest or abdominal pain/cough/dyspnea/diarrhea. Otherwise see above. Constitutional Vitals: Vital Signs Temp Pulse Resp BP Pulse Ox O2 Del Method O2 Flow Rate 97.2 F 85 20 126/76 100 2 12/11/21 17:44 12/11/21 17:44 12/11/21 17:44 12/11/21 17:44 12/11/21 20:00 12/12/21 07:45 12/11/21 17:05 Period Temp Pulse Resp BP Sys/Mcpherson Pulse Ox O2 Del Method O2 Flow Rate Last 24 Hr 97.2 F-98.3 F 70-117 9-33 71-193/46-134 88-100 Aerosol Mask-Simple Mask 2-6 Intake and Output 12/11/21 12/12/21 12/12/21 21:59 05:59 13:59 Intake Total 2765 101 Output Total 149 375 Balance 2616 -274 Weight 44.361 kg Intake & Output: Intake & Output 12/11/21 12/12/21 12/12/21 21:59 05:59 13:59 Intake Total 2765 101 Output Total 149 375 Balance 2616 -274 Weight 44.361 kg Intake: IV 65 101 Vitamin B1 100 mg In Sodium 51 Chloride 0.9% 50 ml @ 50 mls/hr IV DAILY [facility] Rx#:[id number] Ancef 2 gm In Dextrose 5% in 50 Water 50 ml @ 100 mls/hr IV PREOP [facility] Rx#:[id number] IV - Manual Only 2700 Output: Urine Catheter Amount 100 375 Estimated Blood Loss 49 Other: Urine Appearance Clear Clear Urine Color Yellow Light Sharyn Exam: General: Alert, Awake, No acute Distress, frail and cachectic appearing Eyes/N/T: EOMI, Head/Neck: neck supple, CV: RRR, No murmurs, Pulm: Clear b/l, no wheezing/rhonchi/rales Abd: soft, nontender, +BS x4 Ext: no clubbing/cyanosis/edema, left arm in sling and dressings in left leg and dressings Neuro: Alert, no focal deficits, moves all extremities, Skin: warm/dry OBJ DATA Labs CBC & Chem 7: 12/12/21 05:55 12/12/21 05:55 Labs: Abnormal Lab Results 12/12/21 12/12/21 12/11/21 05:55 05:55 11:04 RBC 1.61 L Hgb 7.2 L Hct 20.4 L* MCV 126.7 H MCH 44.7 H RDW 14.9 H MPV Neut % (Auto) 78.8 H Lymph % (Auto) 12.2 L Lymph # (Auto) 0.90 L Sodium Carbon Dioxide 19 L Glucose 147 H Calcium 7.9 L GGT 41 H AST Total Protein 5.2 L Albumin 2.8 L Folate Urine Appearance Cloudy A Urine Occult Blood Trace-intact A Urine RBC 5 H Ur Squamous Epith Cells 14 H Urine Bacteria Many A 12/11/21 12/11/21 12/11/21 10:03 09:01 09:01 RBC 1.91 L Hgb 8.6 L Hct 25.8 L MCV 135.1 H MCH 45.0 H RDW 15.6 H MPV 10.6 H Neut % (Auto) 78.4 H Lymph % (Auto) 12.7 L Lymph # (Auto) 0.96 L Sodium 127 L Carbon Dioxide 16 L Glucose Calcium 8.1 L GGT AST 35 H Total Protein 5.6 L Albumin 2.9 L Folate 3.1 L Urine Appearance Urine Occult Blood Urine RBC Ur Squamous Epith Cells Urine Bacteria Meds: Medications Acetaminophen (Acetaminophen 325 Mg Tablet) 650 mg PO Q6HP PRN; Protocol PRN Reason: Per Pain Protocol/Fever > 101 Hydrocodone Bitart/Acetaminophen (Hydrocodone/Apap 5/325mg Tablet) 1 tab PO Q4HP PRN PRN Reason: PAIN LEVEL 3-6 Last Admin: 12/12/21 07:41 Dose: 1 tab Albuterol/Ipratropium (Ipratropium/Albuterol 3 Ml Ampul.Neb) 3 ml NEB Q4HP PRN PRN Reason: Shortness Of Breath Chlordiazepoxide HCl (Chlordiazepoxide 25 Mg Capsule) 25 mg PO Q4HP PRN PRN Reason: Alcohol Withdrawal/Assess CIWA Docusate Sodium (Docusate Sodium 100 Mg Capsule) 100 mg PO BID [facility] Last Admin: 12/11/21 20:59 Dose: 100 mg Enoxaparin Sodium (Enoxaparin 30 Mg/0.3 Ml Syringe) 40 mg SQ DAILY [facility] Folic Acid (Folic Acid 1 Mg Tablet) 5 mg PO DAILY [facility] Haloperidol Lactate (Haloperidol Lactate 5 Mg/Ml Vial) 0.5 mg IM Q2HP PRN PRN Reason: Alcohol Withdrawal/Assess CIWA Potassium Chloride 40 meq/ (Dextrose) 520 mls @ 130 mls/hr IV UD PRN PRN Reason: Potassium < 3 Magnesium Sulfate (Magnesium Sulfate) 2 gm in 50 mls @ 50 mls/hr IV UD PRN PRN Reason: Magnesium </= 1.6 Thiamine HCl 100 mg/ Sodium (Chloride) 51 mls @ 50 mls/hr IV DAILY [facility] Last Infusion: 12/12/21 02:05 Dose: Infused Iron Carb/Multivit/Laundry Press Operator/Folic Acid (Multivit,Ther Iron,Ca,Fa & Min 1 Tablet) 1 tab PO DAILY [facility] Lorazepam (Lorazepam 2 Mg/Ml Vial) 0 mg IV Q4HP PRN; Protocol PRN Reason: Alcohol Withdrawal/Assess CIWA Morphine Sulfate (Morphine 4 Mg/Ml Vial) 0 mg IV Q3HP PRN PRN Reason: Pain Ondansetron HCl (Ondansetron 4 Mg/2 Ml Vial) 4 mg IV Q4HP PRN PRN Reason: Nausea And Vomiting Polyethylene Glycol (Polyethylene Glycol 3350 17 Gm Packet) 17 gm PO DAILYP PRN PRN Reason: Constipation Potassium Chloride (Potassium Chloride 20 Meq Tablet) 40 meq PO UD PRN PRN Reason: Potssium is 3-3.5 Potassium Chloride (Potassium Chloride 20 Meq Tablet) 40 meq PO UD PRN PRN Reason: Potassium < 3 Senna (Sennosides 1 Tablet) 2 tab PO DAILYP PRN PRN Reason: Constipation Sodium Bicarbonate (Sodium Bicarbonate 650 Mg Tablet) 1,300 mg PO BID [facility] Stop: 12/12/21 09:01 Last Admin: 12/11/21 20:59 Dose: 1,300 mg Sodium Chloride (0.9 % Sodium Chloride 10 Ml Syringe) 10 ml IV Q8 [facility] Last Admin: 12/12/21 05:35 Dose: 10 ml Sodium Chloride (Sodium Chloride 1 Gm Tablet) 2 gm PO BID [facility] Stop: 12/12/21 09:01 Last Admin: 12/11/21 20:59 Dose: 2 gm Sodium Chloride (0.9 % Sodium Chloride 10 Ml Syringe) 10 ml IV Q8 [facility] Last Admin: 12/12/21 05:35 Dose: Not Given A/P Narrative A/P Narrative: A: *Left hip & elbow fracture: s/p Hip & Elbow ORIF (12/11) *MDS w/macrocytic anemia acute on chronic in post-op setting: 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 -gets Retacrit infusions outpatient *Hyponatremia, chronic: improved *Metabolic acidosis: Improving *Folate deficiency: *CKD III: *HTN: *Protein calorie malnutrition: Loss of subcutaneous fat and muscle *Tobacco abuse: P: -Hip and elbow per Ortho -Monitor electrolytes -monitor H&H, Transfuse blood for < 7 or symptomatic -Folate supplementation -Continue home BB -Dietary consult -Smoking cessation counseling -PT/OT -ppx: lovenox per Ortho Time Spent With Patient Time: Total time spent is greater than 50% in coordination of care (as documented) at patient's floor/unit and/or counseling patient: Total time spent with greater than 50% in coordination of care (as documented) at patient's floor/unit and/or counseling patient:: 25 - 35 minutes QUALITY VTE Deep Vein Thrombosis/Pulmonary Embolism Present on Admission: No
[2021-12-12] MEDS ORDERED: 0.9 % SODIUM CHLORIDE 250 ML IV SCH (08:30)
[2021-12-12] MEDS ORDERED: FOLIC ACID 1 MG TABLET PO SCH ×2 (09:00→19:00)
[2021-12-12] MEDS: THIAMINE 100 MG in 0.9 % SODIUM CHLORIDE 50 ML IV SCH (09:32)
[2021-12-12] MEDS: FOLIC ACID 1 MG TABLET PO SCH (09:32)
[2021-12-12] MEDS: SODIUM BICARBONATE 650 MG TABLET PO SCH (09:33)
[2021-12-12] MEDS: METOPROLOL SUCCINATE 25 MG TAB.XL.24H PO SCH (09:33)
[2021-12-12] MEDS: SODIUM CHLORIDE 1 GM TABLET PO SCH (09:33)
[2021-12-12] MEDS: DOCUSATE SODIUM 100 MG CAPSULE PO SCH ×2 (09:33→20:27)
[2021-12-12] MEDS: MULTIVIT,THER IRON,CA,FA & MIN 1 TABLET PO SCH (09:33)
[2021-12-12] MEDS: morphine 4 MG/ML VIAL IV PRN ×5 (09:34→23:58)
[2021-12-12] MEDS ORDERED: 0.9 % SODIUM CHLORIDE 500 ML IV ONE (13:00)
[2021-12-12] MEDS ORDERED: hydrALAZINE 20 MG/ML VIAL IV PRN (14:24)
[2021-12-12] MEDS ORDERED: ENOXAPARIN 30 MG/0.3 ML SYRINGE SQ SCH (16:00)
[2021-12-13] MEDS: 0.9 % SODIUM CHLORIDE 10 ML SYRINGE IV SCH ×5 (04:45→20:13)
[2021-12-13 07:12] LABS: Blood Urea Nitrogen 18 mg/dL (8-23); Calcium 7.7 mg/dL (8.6-10.4); Carbon Dioxide 22 mmol/L (22-30); Chloride 101 mmol/L (96-108); Glomerular Filtration Rate 57; Glucose 80 mg/dL (70-105)
[2021-12-13 07:34] LABS: Basophils # (Auto) 0.05 K/mcL (0.00-0.30); Basophils % (Auto) 0.6 % (0.0-2.0); Eosinophils # (Auto) 0.15 K/mcL (0.00-0.70); Eosinophils % (Auto) 1.8 % (0.0-7.0); Hematocrit 26.6 % (34.1-44.9); Hemoglobin 8.9 g/dL (11.2-15.7); Lymphocytes # (Auto) 1.59 K/mcL (1.50-4.80); Lymphocytes % (Auto) 18.7 % (15.5-49.0); Mean Cell Volume 117.2 fL (80.0-100.0); Mean Corpuscular HGB Conc 33.5 g/dL (31.0-36.0); Mean Platelet Volume 10.9 fL (8.8-12.5); Monocytes # (Auto) 0.43 K/mcL (0.10-0.90); Monocytes % (Auto) 5.1 % (1.0-12.0); Neutrophils % (Auto) 73.2 % (38.0-78.0); Platelet Count 99 K/mcL (140-440); RBC 2.27 M/mcL (3.59-5.38); WBC 8.5 K/mcL (4.5-11.0)
[2021-12-13] MEDS: morphine 4 MG/ML VIAL IV PRN ×5 (07:45→23:03)
[2021-12-13] MEDS: DOCUSATE SODIUM 100 MG CAPSULE PO SCH ×2 (09:02→20:13)
[2021-12-13] MEDS: THIAMINE 100 MG TABLET PO SCH (09:02)
[2021-12-13] MEDS: FOLIC ACID 1 MG TABLET PO SCH (09:02)
[2021-12-13] MEDS: METOPROLOL SUCCINATE 25 MG TAB.XL.24H PO SCH (09:02)
[2021-12-13] MEDS: MULTIVIT,THER IRON,CA,FA & MIN 1 TABLET PO SCH (09:03)
[2021-12-13] MEDS: ENOXAPARIN 40 MG/0.4 ML SYRINGE SQ SCH (09:05)
[2021-12-13] MEDS: HYDROcodone/APAP 5/325MG TABLET PO PRN (09:19)
[2021-12-13] MEDS: NICOTINE 21 MG PATCH TOPICAL SCH (10:09)
--- NOTE | 2021-12-13 10:10 | Internal Med Progress Note ---
SUBJECTIVE Subjective Patient information: Note initiated : 12/13/21 at 9:59 am Service Date, if different from initiated Date: [] Patient: Nadia Miller a 71 y/o F admitted on 12/11/21 for Fall, left foot rotation. Chief Complaint: [] Interval history: Ms. Kirk Jaramillo is a 71 year old F Who presents to the ED with left hip and elbow pain. Patient states she is getting up out of her recliner to go to bed last night and got caught up in a blanket tripped and fell on her left side with immediate pain. She is slept on through the night and came in the ER because the worsening pain. Found to have a left hip fracture intertrochanteric and a left elbow fracture. Labs remarkable for anemia which is macrocytic and is chronic she has a history of MDS and follows with oncology. She has a hyponatremia which appears to be chronic and also in metabolic acidosis. 12/12 Patient slept okay. No overnight event or new complaints. Hemoglobin 7.2. Urine output borderline low during the night but is picking up. Transfuse 1 unit. Sodium better and acid-base status improving. Appears to be folate deficient. Supplemental folate. 12/13: Serum sodium level 128 this morning. Hemoglobin 8.9, platelet count 99. s/p ORIF left hip/left elbow by Dr. Tarango on 12/11. Patient is lethargic now; was c/o 10/10 sharp pain left hip and left elbow. Denies constipation. Denies shortness of breath. Continue Narcotics with [place] and IV Morphine for symptoms management. Nicotine patch for cigarette craving. Pending physical and occupational therapies. Constitutional Vitals: Vital Signs Temp Pulse Resp BP Pulse Ox O2 Del Method O2 Flow Rate 37.6 C H 89 20 128/82 90 2 12/13/21 07:42 12/13/21 03:50 12/13/21 07:42 12/13/21 07:42 12/13/21 07:42 12/13/21 07:42 12/11/21 17:05 Period Temp Pulse Resp BP Sys/Mcpherson Pulse Ox O2 Del Method O2 Flow Rate Last 24 Hr 36.3 C-37.7 C 77-101 12-20 93-128/61-85 90-100 Room Air-Room Air Intake and Output 12/12/21 12/13/21 12/13/21 21:59 05:59 13:59 Intake Total 1480 500 Output Total 375 850 Balance 1105 -350 Weight 44.543 kg Intake & Output: Intake & Output 12/12/21 12/13/21 12/13/21 21:59 05:59 13:59 Intake Total 1480 500 Output Total 375 850 Balance 1105 -350 Weight 44.543 kg Intake: IV 1000 500 Sodium Chloride 0.9% 1,000 ml @ 1000 60 mls/hr IV .[id number] [facility] Rx#: [id number] Sodium Chloride 0.9% 500 ml @ 500 60 mls/hr IV ONCE ONE Rx#: [id number] Oral 480 Output: Urine Catheter Amount 375 850 Other: Meal Dinner Percent of Meal Consumed 50% Urine Appearance Clear Clear Urine Color Yellow Yellow Urine Odor Normal Head Head exam: Present atraumatic and normal inspection Eye Eye exam: Present normal appearance ENT ENT exam: Present mucous membranes moist, normal exam and normal external ear exam Neck Neck exam: Present normal inspection Respiratory Respiratory exam: Present normal respiratory exam Cardiovascular Cardiovascular exam: Present normal rate and rhythm GI/Abdominal GI/Abdominal exam: Present normal bowel sounds Extremities Exam Extremities exam: Present tenderness; Absent full ROM or normal inspection Additional comments: Sling, left arm. Left elbow and left hip surgical dressings in place. Back Exam Back exam: Present normal inspection Neurological Exam Neurological exam: Present alert and oriented X3 Skin Skin exam: Present intact and warm OBJ DATA Labs CBC & Chem 7: 12/13/21 05:32 12/13/21 05:32 Labs: Abnormal Lab Results 12/13/21 12/13/21 12/12/21 05:32 05:32 05:55 RBC 2.27 L Hgb 8.9 L Hct 26.6 L MCV 117.2 H MCH 39.2 H RDW Plt Count 99 L MPV Immature Gran % (Auto) 0.6 H Neut % (Auto) Lymph % (Auto) Lymph # (Auto) Sodium 128 L Carbon Dioxide 19 L Anion Gap 5.0 L Glucose 147 H Calcium 7.7 L 7.9 L GGT 41 H AST Total Protein 5.2 L Albumin 2.8 L Folate Urine Appearance Urine Occult Blood Urine RBC Ur Squamous Epith Cells Urine Bacteria 12/12/21 12/11/21 12/11/21 05:55 11:04 10:03 RBC 1.61 L Hgb 7.2 L Hct 20.4 L* MCV 126.7 H MCH 44.7 H RDW 14.9 H Plt Count MPV Immature Gran % (Auto) Neut % (Auto) 78.8 H Lymph % (Auto) 12.2 L Lymph # (Auto) 0.90 L Sodium Carbon Dioxide Anion Gap Glucose Calcium GGT AST Total Protein Albumin Folate 3.1 L Urine Appearance Cloudy A Urine Occult Blood Trace-intact A Urine RBC 5 H Ur Squamous Epith Cells 14 H Urine Bacteria Many A 12/11/21 12/11/21 09:01 09:01 RBC 1.91 L Hgb 8.6 L Hct 25.8 L MCV 135.1 H MCH 45.0 H RDW 15.6 H Plt Count MPV 10.6 H Immature Gran % (Auto) Neut % (Auto) 78.4 H Lymph % (Auto) 12.7 L Lymph # (Auto) 0.96 L Sodium 127 L Carbon Dioxide 16 L Anion Gap Glucose Calcium 8.1 L GGT AST 35 H Total Protein 5.6 L Albumin 2.9 L Folate Urine Appearance Urine Occult Blood Urine RBC Ur Squamous Epith Cells Urine Bacteria Meds: Medications Acetaminophen (Acetaminophen 325 Mg Tablet) 650 mg PO Q6HP PRN; Protocol PRN Reason: Per Pain Protocol/Fever > 101 Hydrocodone Bitart/Acetaminophen (Hydrocodone/Apap 5/325mg Tablet) 1 tab PO Q4HP PRN PRN Reason: PAIN LEVEL 3-6 Last Admin: 12/13/21 09:19 Dose: 1 tab Albuterol/Ipratropium (Ipratropium/Albuterol 3 Ml Ampul.Neb) 3 ml NEB Q4HP PRN PRN Reason: Shortness Of Breath Chlordiazepoxide HCl (Chlordiazepoxide 25 Mg Capsule) 25 mg PO Q4HP PRN PRN Reason: Alcohol Withdrawal/Assess CIWA Docusate Sodium (Docusate Sodium 100 Mg Capsule) 100 mg PO BID [facility] Last Admin: 12/13/21 09:02 Dose: 100 mg Enoxaparin Sodium (Enoxaparin 40 Mg/0.4 Ml Syringe) 40 mg SQ DAILY [facility] Last Admin: 12/13/21 09:05 Dose: Not Given Folic Acid (Folic Acid 1 Mg Tablet) 5 mg PO DAILY [facility] Last Admin: 12/13/21 09:02 Dose: 5 mg Haloperidol Lactate (Haloperidol Lactate 5 Mg/Ml Vial) 0.5 mg IM Q2HP PRN PRN Reason: Alcohol Withdrawal/Assess CIWA Hydralazine HCl (Hydralazine 20 Mg/Ml Vial) 10 mg IV Q4-6HP PRN PRN Reason: Hypertension Potassium Chloride 40 meq/ (Dextrose) 520 mls @ 130 mls/hr IV UD PRN PRN Reason: Potassium < 3 Magnesium Sulfate (Magnesium Sulfate) 2 gm in 50 mls @ 50 mls/hr IV UD PRN PRN Reason: Magnesium </= 1.6 Iron Carb/Multivit/Cable Inspector/Folic Acid (Multivit,Ther Iron,Ca,Fa & Min 1 Tablet) 1 tab PO DAILY [facility] Last Admin: 12/13/21 09:03 Dose: 1 tab Lorazepam (Lorazepam 2 Mg/Ml Vial) 0 mg IV Q4HP PRN; Protocol PRN Reason: Alcohol Withdrawal/Assess CIWA Metoprolol Succinate (Metoprolol Succinate 25 Mg Tab.Xl.24h) 25 mg PO DAILY [facility] Last Admin: 12/13/21 09:02 Dose: 25 mg Morphine Sulfate (Morphine 4 Mg/Ml Vial) 0 mg IV Q3HP PRN PRN Reason: Pain Last Admin: 12/13/21 07:45 Dose: 2 mg Morphine Sulfate (Morphine 4 Mg/Ml Vial) 4 mg IV Q2HP PRN; Protocol PRN Reason: Per Pain Protocol Nicotine (Nicotine 21 Mg Patch) 21 mg TOPICAL DAILY@1000 [facility] Ondansetron HCl (Ondansetron 4 Mg/2 Ml Vial) 4 mg IV Q4HP PRN PRN Reason: Nausea And Vomiting Polyethylene Glycol (Polyethylene Glycol 3350 17 Gm Packet) 17 gm PO DAILYP PRN PRN Reason: Constipation Potassium Chloride (Potassium Chloride 20 Meq Tablet) 40 meq PO UD PRN PRN Reason: Potssium is 3-3.5 Potassium Chloride (Potassium Chloride 20 Meq Tablet) 40 meq PO UD PRN PRN Reason: Potassium < 3 Senna (Sennosides 1 Tablet) 2 tab PO DAILYP PRN PRN Reason: Constipation Sodium Chloride (0.9 % Sodium Chloride 10 Ml Syringe) 10 ml IV Q8 [facility] Last Admin: 12/13/21 06:01 Dose: 10 ml Sodium Chloride (0.9 % Sodium Chloride 10 Ml Syringe) 10 ml IV Q8 [facility] Last Admin: 12/13/21 04:45 Dose: Not Given Thiamine HCl (Thiamine 100 Mg Tablet) 100 mg PO DAILY [facility] Last Admin: 12/13/21 09:02 Dose: 100 mg A/P Assessment and plan (1) Macrocytic anemia: Status: Acute (2) MDS (myelodysplastic syndrome): Status: Acute (3) Closed intertrochanteric fracture of left femur: Status: Acute Comment: Mobilize with PT Qualifiers: Encounter type: initial encounter Fracture alignment: nondisplaced Qualified Code(s): S72.145A - Nondisplaced intertrochanteric fracture of left femur, initial encounter for closed fracture (4) Closed olecranon fracture: Status: Acute Comment: Nerve injury due to block versus slow to wake up motor. will have anesthesia evaluate. Qualifiers: Encounter type: initial encounter Laterality: left Qualified Code(s): S52.022A - Displaced fracture of olecranon process without intraarticular extension of left ulna, initial encounter for closed fracture (5) Essential hypertension: Status: Acute (6) Thrombocytopenia: Status: Acute (7) Hyponatremia: Status: Acute (8) Cigarette smoker: Status: Acute Narrative A/P Narrative: Assessment and Plans: 1. Left hip and elbow fractures s/p ORIF by Dr. Tarango on 12/11: Post surgical management as per primary team Continue narcotics for symptoms management Physical therapy Occupational therapy 2. Myelodysplastic syndrome with anemia and thrombocytopenia: Iron/folate/thiamine replacements cbc w/ auto diff daily to trend H/H and plt count 3. Essential hypertension: Normotensive Metoprolol XL 4. Cigarette smoker status: Nicotine replacement therapy 5. Hyponatremia: Saline lock, encourage oral intake Repeat BMP at noon at trend serum sodium level GI ppx: not currently indicated DVT ppx: Hold Lovenox for today due to worsening plt count Code status: Full Prognosis: stable Disposition: inpatient med surg; PT OT Time Spent With Patient Time: Total time spent is greater than 50% in coordination of care (as documented) at patient's floor/unit and/or counseling patient: Total time spent with greater than 50% in coordination of care (as documented) at patient's floor/unit and/or counseling patient:: 35 - 50 minutes QUALITY VTE Deep Vein Thrombosis/Pulmonary Embolism Present on Admission: No
[2021-12-13 14:22] LABS: Blood Urea Nitrogen 17 mg/dL (8-23); Carbon Dioxide 22 mmol/L (22-30); Chloride 99 mmol/L (96-108); Glomerular Filtration Rate 57; Glucose 94 mg/dL (70-105)
[2021-12-14] MEDS: morphine 4 MG/ML VIAL IV PRN ×2 (01:37→20:41)
[2021-12-14] MEDS: 0.9 % SODIUM CHLORIDE 10 ML SYRINGE IV SCH ×3 (06:05→22:31)
[2021-12-14] MEDS: HYDROcodone/APAP 5/325MG TABLET PO PRN ×2 (06:05→12:28)
[2021-12-14] MEDS: FOLIC ACID 1 MG TABLET PO SCH (08:38)
[2021-12-14] MEDS: THIAMINE 100 MG TABLET PO SCH (08:38)
[2021-12-14] MEDS: METOPROLOL SUCCINATE 25 MG TAB.XL.24H PO SCH (08:38)
[2021-12-14] MEDS: MULTIVIT,THER IRON,CA,FA & MIN 1 TABLET PO SCH (08:38)
[2021-12-14] MEDS: DOCUSATE SODIUM 100 MG CAPSULE PO SCH ×2 (08:38→21:56)
[2021-12-14] MEDS: ENOXAPARIN 40 MG/0.4 ML SYRINGE SQ SCH (08:39)
[2021-12-14] MEDS: NICOTINE 21 MG PATCH TOPICAL SCH (08:39)
[2021-12-14] MEDS: ACETAMINOPHEN 325 MG TABLET PO PRN (12:03)
--- NOTE | 2021-12-14 13:07 | Internal Med Progress Note ---
SUBJECTIVE Subjective Patient information: Note initiated : 12/14/21 at 1:06 pm Service Date, if different from initiated Date: [] Patient: Nadia Miller a 71 y/o F admitted on 12/11/21 for Fall, left foot rotation. Chief Complaint: [] Interval history: Ms. Kirk Jaramillo is a 71 year old F Who presents to the ED with left hip and elbow pain. Patient states she is getting up out of her recliner to go to bed last night and got caught up in a blanket tripped and fell on her left side with immediate pain. She is slept on through the night and came in the ER because the worsening pain. Found to have a left hip fracture intertrochanteric and a left elbow fracture. Labs remarkable for anemia which is macrocytic and is chronic she has a history of MDS and follows with oncology. She has a hyponatremia which appears to be chronic and also in metabolic acidosis. 12/12 Patient slept okay. No overnight event or new complaints. Hemoglobin 7.2. Urine output borderline low during the night but is picking up. Transfuse 1 unit. Sodium better and acid-base status improving. Appears to be folate deficient. Supplemental folate. 12/13: Serum sodium level 128 this morning. Hemoglobin 8.9, platelet count 99. s/p ORIF left hip/left elbow by Dr. Tarango on 12/11. Patient is lethargic now; was c/o 10/10 sharp pain left hip and left elbow. Denies constipation. Denies shortness of breath. Continue Narcotics with [place] and IV Morphine for symptoms management. Nicotine patch for cigarette craving. Pending physical and occupational therapies. 12/14: Fever with T-max 38.7 this morning. She is on 2 L/min of oxygen's. She is coming of severe sharp pain of the left elbow. Denies any left hip pain. Continue CIWA protocol for delirium tremens/alcohol withdrawal. Blood culture x2, chest x-ray, and start Zosyn as empiric antibiotics. Continue Narcotics with [place] and IV Morphine for symptoms management. Nicotine patch for cigarette craving. Pending physical and occupational therapies. Constitutional Vitals: Vital Signs Temp Pulse Resp BP Pulse Ox O2 Del Method O2 Flow Rate 38.3 C H 99 H 20 130/80 94 2 12/14/21 12:06 12/14/21 12:06 12/14/21 12:06 12/14/21 12:06 12/14/21 12:06 12/14/21 12:06 12/14/21 12:06 Period Temp Pulse Resp BP Sys/Mcpherson Pulse Ox O2 Del Method O2 Flow Rate Last 24 Hr 37.2 C-38.7 C 94-103 15-20 103-133/67-86 90-95 Nasal Cannula- Room Air 2-4 Intake and Output 12/13/21 12/14/21 12/14/21 21:59 05:59 13:59 Intake Total 300 400 Output Total 1350 600 Balance -1050 -200 Weight 50.831 kg Intake & Output: Intake & Output 12/13/21 12/14/21 12/14/21 21:59 05:59 13:59 Intake Total 300 400 Output Total 1350 600 Balance -1050 -200 Weight 50.831 kg Intake: Oral 300 400 Output: Urine Catheter Amount 1350 600 Other: Urine Appearance Clear Clear Uretheral (Suárez) Clear Urine Color Yellow Yellow Uretheral ([place]) Yellow Urine Odor Normal Head Head exam: Present atraumatic and normal inspection Eye Eye exam: Present normal appearance ENT ENT exam: Present mucous membranes moist, normal exam and normal external ear exam Additional comments: Nasal cannula in place Neck Neck exam: Present normal inspection Respiratory Respiratory exam: Present normal respiratory exam Cardiovascular Cardiovascular exam: Present normal rate and rhythm GI/Abdominal GI/Abdominal exam: Present normal bowel sounds Extremities Exam Extremities exam: Present tenderness; Absent full ROM or normal inspection Additional comments: Sling, left arm. Left elbow and left hip surgical dressings in place. Back Exam Back exam: Present normal inspection Neurological Exam Neurological exam: Present alert and oriented X3 Skin Skin exam: Present intact and warm OBJ DATA Labs CBC & Chem 7: 12/13/21 05:32 12/13/21 13:00 Labs: Abnormal Lab Results 12/13/21 12/13/21 12/13/21 13:00 05:32 05:32 RBC 2.27 L Hgb 8.9 L Hct 26.6 L MCV 117.2 H MCH 39.2 H RDW Plt Count 99 L Immature Gran % (Auto) 0.6 H Neut % (Auto) Lymph % (Auto) Lymph # (Auto) Sodium 129 L 128 L Carbon Dioxide Anion Gap 5.0 L Glucose Calcium 8.0 L 7.7 L GGT Total Protein Albumin 12/12/21 12/12/21 05:55 05:55 RBC 1.61 L Hgb 7.2 L Hct 20.4 L* MCV 126.7 H MCH 44.7 H RDW 14.9 H Plt Count Immature Gran % (Auto) Neut % (Auto) 78.8 H Lymph % (Auto) 12.2 L Lymph # (Auto) 0.90 L Sodium Carbon Dioxide 19 L Anion Gap Glucose 147 H Calcium 7.9 L GGT 41 H Total Protein 5.2 L Albumin 2.8 L Meds: Medications Acetaminophen (Acetaminophen 325 Mg Tablet) 650 mg PO Q6HP PRN; Protocol PRN Reason: Per Pain Protocol/Fever > 101 Last Admin: 12/14/21 12:03 Dose: 650 mg Hydrocodone Bitart/Acetaminophen (Hydrocodone/Apap 5/325mg Tablet) 1 tab PO Q4HP PRN PRN Reason: PAIN LEVEL 3-6 Last Admin: 12/14/21 12:28 Dose: 1 tab Albuterol/Ipratropium (Ipratropium/Albuterol 3 Ml Ampul.Neb) 3 ml NEB Q4HP PRN PRN Reason: Shortness Of Breath Chlordiazepoxide HCl (Chlordiazepoxide 25 Mg Capsule) 25 mg PO Q4HP PRN PRN Reason: Alcohol Withdrawal/Assess CIWA Docusate Sodium (Docusate Sodium 100 Mg Capsule) 100 mg PO BID REPLACED BY [facility] Last Admin: 12/14/21 08:38 Dose: 100 mg Enoxaparin Sodium (Enoxaparin 40 Mg/0.4 Ml Syringe) 40 mg SQ DAILY REPLACED BY [facility] Last Admin: 12/14/21 08:39 Dose: 40 mg Folic Acid (Folic Acid 1 Mg Tablet) 5 mg PO DAILY REPLACED BY [facility] Last Admin: 12/14/21 08:38 Dose: 5 mg Haloperidol Lactate (Haloperidol Lactate 5 Mg/Ml Vial) 0.5 mg IM Q2HP PRN PRN Reason: Alcohol Withdrawal/Assess CIWA Hydralazine HCl (Hydralazine 20 Mg/Ml Vial) 10 mg IV Q4-6HP PRN PRN Reason: Hypertension Potassium Chloride 40 meq/ (Dextrose) 520 mls @ 130 mls/hr IV UD PRN PRN Reason: Potassium < 3 Magnesium Sulfate (Magnesium Sulfate) 2 gm in 50 mls @ 50 mls/hr IV UD PRN PRN Reason: Magnesium </= 1.6 Piperacillin Sod/Tazobactam (Sod 3.375 gm/ Dextrose) 50 mls @ 100 mls/hr IV Q8H REPLACED BY [facility]; Protocol Iron Carb/Multivit/[employer]/Folic Acid (Multivit,Ther Iron,Ca,Fa & Min 1 Tablet) 1 tab PO DAILY REPLACED BY [facility] Last Admin: 12/14/21 08:38 Dose: 1 tab Lorazepam (Lorazepam 2 Mg/Ml Vial) 0 mg IV Q4HP PRN; Protocol PRN Reason: Alcohol Withdrawal/Assess CIWA Metoprolol Succinate (Metoprolol Succinate 25 Mg Tab.Xl.24h) 25 mg PO DAILY REPLACED BY [facility] Last Admin: 12/14/21 08:38 Dose: 25 mg Morphine Sulfate (Morphine 4 Mg/Ml Vial) 0 mg IV Q3HP PRN PRN Reason: Pain Last Admin: 12/13/21 07:45 Dose: 2 mg Morphine Sulfate (Morphine 4 Mg/Ml Vial) 4 mg IV Q2HP PRN; Protocol PRN Reason: Per Pain Protocol Last Admin: 12/14/21 01:37 Dose: 4 mg Nicotine (Nicotine 21 Mg Patch) 21 mg TOPICAL DAILY@1000 REPLACED BY [facility] Last Admin: 12/14/21 08:39 Dose: 21 mg Ondansetron HCl (Ondansetron 4 Mg/2 Ml Vial) 4 mg IV Q4HP PRN PRN Reason: Nausea And Vomiting Polyethylene Glycol (Polyethylene Glycol 3350 17 Gm Packet) 17 gm PO DAILYP PRN PRN Reason: Constipation Potassium Chloride (Potassium Chloride 20 Meq Tablet) 40 meq PO UD PRN PRN Reason: Potssium is 3-3.5 Potassium Chloride (Potassium Chloride 20 Meq Tablet) 40 meq PO UD PRN PRN Reason: Potassium < 3 Senna (Sennosides 1 Tablet) 2 tab PO DAILYP PRN PRN Reason: Constipation Sodium Chloride (0.9 % Sodium Chloride 10 Ml Syringe) 10 ml IV Q8 REPLACED BY [facility] Last Admin: 12/14/21 06:05 Dose: 10 ml Thiamine HCl (Thiamine 100 Mg Tablet) 100 mg PO DAILY REPLACED BY [facility] Last Admin: 12/14/21 08:38 Dose: 100 mg A/P Assessment and plan (1) Macrocytic anemia: Status: Acute (2) MDS (myelodysplastic syndrome): Status: Acute (3) Closed intertrochanteric fracture of left femur: Status: Acute Comment: Mobilize with PT Qualifiers: Encounter type: initial encounter Fracture alignment: nondisplaced Qualified Code(s): S72.145A - Nondisplaced intertrochanteric fracture of left femur, initial encounter for closed fracture (4) Closed olecranon fracture: Status: Acute Comment: Nerve injury due to block versus slow to wake up motor. will have anesthesia evaluate. Qualifiers: Encounter type: initial encounter Laterality: left Qualified Code(s): S52.022A - Displaced fracture of olecranon process without intraarticular extension of left ulna, initial encounter for closed fracture (5) Essential hypertension: Status: Acute (6) Thrombocytopenia: Status: Acute (7) Hyponatremia: Status: Acute (8) Cigarette smoker: Status: Acute (9) Delirium tremens: Status: Acute Narrative A/P Narrative: Assessment and Plans: 1. Left hip and elbow fractures s/p ORIF by Dr. Tarango on 12/11: Post surgical management as per primary team Continue narcotics for symptoms management Physical therapy Occupational therapy 2. Myelodysplastic syndrome with anemia and thrombocytopenia: Iron/folate/thiamine replacements cbc w/ auto diff daily to trend H/H and plt count 3. Essential hypertension: Normotensive Metoprolol XL 4. Cigarette smoker status: Nicotine replacement therapy 5. Hyponatremia: Saline lock, encourage oral intake Daily CMP to trend serum sodium level 6. Delirium tremens: Continue [facility] protocol Folate Thiamine Multivitamin with iron 7. Fever: DDx: Pneumonia, surgical sites infection, alcohol withdrawal/delirium tremens Continue CIAL protocol Blood cultures X2 on 12/14 Chest X ray cbc w/ auto diff daily Incentive spirometry Zosyn as empiric antibiotics Tylenol PRN fever GI ppx: not currently indicated DVT ppx: Hold Lovenox for today due to worsening plt count Code status: Full Prognosis: guarded Disposition: inpatient med surg; PT OT Time Spent With Patient Time: Total time spent is greater than 50% in coordination of care (as documented) at patient's floor/unit and/or counseling patient: Total time spent with greater than 50% in coordination of care (as documented) at patient's floor/unit and/or counseling patient:: 35 - 50 minutes QUALITY VTE Deep Vein Thrombosis/Pulmonary Embolism Present on Admission: No
[2021-12-14] MEDS: PIPERACILLIN SODIUM/TAZOBACTAM 3.375 GM in DEXTROSE 5% IN WATER 50 ML IV SCH ×2 (14:49→21:56)
--- NOTE | 2021-12-14 15:18 | XRay Report ---
HISTORY: Short of breath, recent fall FINDINGS: Moderate diffuse alveolar opacities are present throughout both lungs. This predominantly involves the central portion of the lungs. There is a superimposed small right-sided pleural effusion. The heart is upper limits of normal in size. The infiltrates and pleural effusion are new findings since the recent exam done on 12/11/21. IMPRESSION: Bilateral infiltrates. This could be due to pulmonary edema or widespread bilateral pneumonia Interpreted and Authenticated by: Aston Arboleda 12/14/21
[2021-12-15] MEDS: 0.9 % SODIUM CHLORIDE 10 ML SYRINGE IV SCH ×3 (05:50→20:47)
[2021-12-15] MEDS: PIPERACILLIN SODIUM/TAZOBACTAM 3.375 GM in DEXTROSE 5% IN WATER 50 ML IV SCH ×3 (05:50→22:18)
[2021-12-15 07:12] LABS: Basophils # (Auto) 0.04 K/mcL (0.00-0.30); Basophils % (Auto) 0.3 % (0.0-2.0); Eosinophils # (Auto) 0.07 K/mcL (0.00-0.70); Eosinophils % (Auto) 0.6 % (0.0-7.0); Hematocrit 27.4 % (34.1-44.9); Lymphocytes # (Auto) 0.54 K/mcL (1.50-4.80); Lymphocytes % (Auto) 4.3 % (15.5-49.0); Mean Cell Volume 121.8 fL (80.0-100.0); Mean Corpuscular HGB Conc 32.8 g/dL (31.0-36.0); Mean Platelet Volume 10.8 fL (8.8-12.5); Neutrophils % (Auto) 90.1 % (38.0-78.0); Platelet Count 108 K/mcL (140-440); RBC 2.25 M/mcL (3.59-5.38); Red Cell Distribution Width 21.9 % (11.5-14.5); WBC 12.4 K/mcL (4.5-11.0)
[2021-12-15 07:22] LABS: ALT/SGPT 11 U/L (<40); AST/SGOT 39 U/L (<32); Albumin 2.1 gm/dL (3.2-5.2); Albumin/Globulin Ratio 0.8 (1.0-2.3); Alkaline Phosphatase 172 U/L (39-117); Bilirubin,Total 1.1 mg/dL (0.1-1.0); Blood Urea Nitrogen 17 mg/dL (8-23); Calcium 7.9 mg/dL (8.6-10.4); Carbon Dioxide 18 mmol/L (22-30); Chloride 97 mmol/L (96-108); Globulin 2.8 gm/dL (2.2-3.7); Glomerular Filtration Rate 50; Glucose 76 mg/dL (70-105); Phosphorous 3.4 mg/dL (2.5-4.5)
[2021-12-15] MEDS: morphine 4 MG/ML VIAL IV PRN (08:26)
[2021-12-15] MEDS: MULTIVIT,THER IRON,CA,FA & MIN 1 TABLET PO SCH (08:27)
[2021-12-15] MEDS: ENOXAPARIN 40 MG/0.4 ML SYRINGE SQ SCH (08:27)
[2021-12-15] MEDS: DOCUSATE SODIUM 100 MG CAPSULE PO SCH ×2 (08:27→20:46)
[2021-12-15] MEDS: METOPROLOL SUCCINATE 25 MG TAB.XL.24H PO SCH (08:27)
[2021-12-15] MEDS: THIAMINE 100 MG TABLET PO SCH (08:27)
[2021-12-15] MEDS: FOLIC ACID 1 MG TABLET PO SCH (08:28)
[2021-12-15] MEDS: POLYETHYLENE GLYCOL 3350 17 GM PACKET PO PRN (08:32)
[2021-12-15] MEDS: NICOTINE 21 MG PATCH TOPICAL SCH (10:14)
[2021-12-15] MEDS: HYDROcodone/APAP 5/325MG TABLET PO PRN ×3 (10:17→20:46)
[2021-12-15] MEDS ORDERED: BISACODYL 10 MG SUPP.RECT PR PRN (10:20)
[2021-12-15] MEDS ORDERED: MAGNESIUM HYDROXIDE 30 ML ORAL.SUSP PO PRN (10:21)
[2021-12-15] MEDS ORDERED: LACTULOSE 20 GM/30 ML ORAL.SOL PO PRN (10:21)
--- NOTE | 2021-12-15 12:34 | Internal Med Progress Note ---
SUBJECTIVE Subjective Patient information: Note initiated : 12/15/21 at 12:28 pm Service Date, if different from initiated Date: [] Patient: Nadia Miller a 71 y/o F admitted on 12/11/21 for Fall, left foot rotation. Chief Complaint: [] Interval history: Ms. Kirk Jaramillo is a 71 year old F Who presents to the ED with left hip and elbow pain. Patient states she is getting up out of her recliner to go to bed last night and got caught up in a blanket tripped and fell on her left side with immediate pain. She is slept on through the night and came in the ER because the worsening pain. Found to have a left hip fracture intertrochanteric and a left elbow fracture. Labs remarkable for anemia which is macrocytic and is chronic she has a history of MDS and follows with oncology. She has a hyponatremia which appears to be chronic and also in metabolic acidosis. 12/12 Patient slept okay. No overnight event or new complaints. Hemoglobin 7.2. Urine output borderline low during the night but is picking up. Transfuse 1 unit. Sodium better and acid-base status improving. Appears to be folate deficient. Supplemental folate. 12/13: Serum sodium level 128 this morning. Hemoglobin 8.9, platelet count 99. s/p ORIF left hip/left elbow by Dr. Tarango on 12/11. Patient is lethargic now; was c/o 10/10 sharp pain left hip and left elbow. Denies constipation. Denies shortness of breath. Continue Narcotics with [place] and IV Morphine for symptoms management. Nicotine patch for cigarette craving. Pending physical and occupational therapies. 12/14: Fever with T-max 38.7 this morning. She is on 2 L/min of oxygen's. She is coming of severe sharp pain of the left elbow. Denies any left hip pain. Continue CIWA protocol for delirium tremens/alcohol withdrawal. Blood culture x2, chest x-ray, and start Zosyn as empiric antibiotics. Continue Narcotics with [place] and IV Morphine for symptoms management. Nicotine patch for cigarette craving. Pending physical and occupational therapies. 12/15: Low grade fever Tmax 37.9 overnight. Blood cultures no growth to date. Chest x- ray showing bilateral pulmonary edema versus infiltrates. Serum sodium 127. CIWA score=0. She is on room air. She is coming of severe sharp pain of the left elbow. Denies any left hip pain. d/c CIWA protocol. Continue Zosyn and supplemental oxygen therapy as needed while monitoring blood culture results. Sodium chloride 2gm PO TID and daily CMP to trend serum sodium level. Continue Narcotics with [place] and IV Morphine for symptoms management. Pending physical and occupational therapies. Constitutional Vitals: Vital Signs Temp Pulse Resp BP Pulse Ox O2 Del Method O2 Flow Rate 37.6 C H 90 16 108/73 90 3 12/15/21 12:00 12/15/21 12:00 12/15/21 12:00 12/15/21 12:00 12/15/21 12:00 12/15/21 12:00 12/15/21 07:45 Period Temp Pulse Resp BP Sys/Mcpherson Pulse Ox O2 Del Method O2 Flow Rate Last 24 Hr 37.1 C-37.9 C 90-103 16-22 106-155/72-94 90-96 Nasal Cannula- Room Air 2-3.0 Intake and Output 12/14/21 12/15/21 12/15/21 21:59 05:59 13:59 Intake Total 50 350 290 Output Total 200 200 150 Balance -150 150 140 Weight 47.174 kg Intake & Output: Intake & Output 12/14/21 12/15/21 12/15/21 21:59 05:59 13:59 Intake Total 50 350 290 Output Total 200 200 150 Balance -150 150 140 Weight 47.174 kg Intake: IV 50 50 50 Zosyn 3.375 gm In Dextrose 5% 50 50 50 in Water 50 ml @ 100 mls/hr IV Q8H [facility] Rx#:[id number] Oral 300 240 Output: Void Amount 200 200 150 Other: Meal Dinner Percent of Meal Consumed 75% Feeding Ability Assist with Tray Set Up Urine Appearance Clear Clear Clear Urine Color Dark Yellow Dark Yellow Yellow Head Head exam: Present atraumatic and normal inspection Eye Eye exam: Present normal appearance ENT ENT exam: Present mucous membranes moist, normal exam and normal external ear exam Neck Neck exam: Present normal inspection Respiratory Respiratory exam: Present normal respiratory exam Cardiovascular Cardiovascular exam: Present normal rate and rhythm GI/Abdominal GI/Abdominal exam: Present normal bowel sounds Extremities Exam Extremities exam: Present tenderness; Absent full ROM or normal inspection Additional comments: Sling, left arm. Left elbow and left hip surgical dressings in place. Back Exam Back exam: Present normal inspection Neurological Exam Neurological exam: Present alert and oriented X3 Skin Skin exam: Present intact and warm OBJ DATA Labs CBC & Chem 7: 12/15/21 05:18 12/15/21 05:18 Labs: Abnormal Lab Results 12/15/21 12/15/21 12/13/21 05:18 05:18 13:00 WBC 12.4 H RBC 2.25 L Hgb 9.0 L Hct 27.4 L MCV 121.8 H MCH 40.0 H RDW 21.9 H Plt Count 108 L Immature Gran % (Auto) 0.7 H Neut % (Auto) 90.1 H Lymph % (Auto) 4.3 L Lymph # (Auto) 0.54 L Immature Gran # 0.09 H Absolute Neutrophils 11.20 H Sodium 127 L 129 L Carbon Dioxide 18 L Anion Gap Calcium 7.9 L 8.0 L Total Bilirubin 1.1 H AST 39 H Alkaline Phosphatase 172 H Total Protein 4.9 L Albumin 2.1 L Albumin/Globulin Ratio 0.8 L 12/13/21 12/13/21 05:32 05:32 WBC RBC 2.27 L Hgb 8.9 L Hct 26.6 L MCV 117.2 H MCH 39.2 H RDW Plt Count 99 L Immature Gran % (Auto) 0.6 H Neut % (Auto) Lymph % (Auto) Lymph # (Auto) Immature Gran # Absolute Neutrophils Sodium 128 L Carbon Dioxide Anion Gap 5.0 L Calcium 7.7 L Total Bilirubin AST Alkaline Phosphatase Total Protein Albumin Albumin/Globulin Ratio Meds: Medications Acetaminophen (Acetaminophen 325 Mg Tablet) 650 mg PO Q6HP PRN; Protocol PRN Reason: Per Pain Protocol/Fever > 101 Last Admin: 12/14/21 12:03 Dose: 650 mg Hydrocodone Bitart/Acetaminophen (Hydrocodone/Apap 5/325mg Tablet) 1 tab PO Q4HP PRN PRN Reason: PAIN LEVEL 3-6 Last Admin: 12/15/21 10:17 Dose: 1 tab Albuterol/Ipratropium (Ipratropium/Albuterol 3 Ml Ampul.Neb) 3 ml NEB Q4HP PRN PRN Reason: Shortness Of Breath Bisacodyl (Bisacodyl 10 Mg Supp.Rect) 10 mg AR DAILYP PRN PRN Reason: Constipation Chlordiazepoxide HCl (Chlordiazepoxide 25 Mg Capsule) 25 mg PO Q4HP PRN PRN Reason: Alcohol Withdrawal/Assess CIWA Docusate Sodium (Docusate Sodium 100 Mg Capsule) 100 mg PO BID [facility] Last Admin: 12/15/21 08:27 Dose: 100 mg Enoxaparin Sodium (Enoxaparin 40 Mg/0.4 Ml Syringe) 40 mg SQ DAILY [facility] Last Admin: 12/15/21 08:27 Dose: 40 mg Folic Acid (Folic Acid 1 Mg Tablet) 5 mg PO DAILY [facility] Last Admin: 12/15/21 08:28 Dose: 5 mg Haloperidol Lactate (Haloperidol Lactate 5 Mg/Ml Vial) 0.5 mg IM Q2HP PRN PRN Reason: Alcohol Withdrawal/Assess CIWA Hydralazine HCl (Hydralazine 20 Mg/Ml Vial) 10 mg IV Q4-6HP PRN PRN Reason: Hypertension Potassium Chloride 40 meq/ (Dextrose) 520 mls @ 130 mls/hr IV UD PRN PRN Reason: Potassium < 3 Magnesium Sulfate (Magnesium Sulfate) 2 gm in 50 mls @ 50 mls/hr IV UD PRN PRN Reason: Magnesium </= 1.6 Piperacillin Sod/Tazobactam (Sod 3.375 gm/ Dextrose) 50 mls @ 100 mls/hr IV Q8H [facility]; Protocol Last Infusion: 12/15/21 06:20 Dose: Infused Iron Carb/Multivit/[employer]/Folic Acid (Multivit,Ther Iron,Ca,Fa & Min 1 Tablet) 1 tab PO DAILY [facility] Last Admin: 12/15/21 08:27 Dose: 1 tab Lactulose (Lactulose 20 Gm/30 Ml Oral.Tia) 10 gm PO DAILYP PRN PRN Reason: Constipation Lorazepam (Lorazepam 2 Mg/Ml Vial) 0 mg IV Q4HP PRN; Protocol PRN Reason: Alcohol Withdrawal/Assess CIWA Magnesium Hydroxide (Magnesium Hydroxide 30 Ml Oral.Susp) 30 ml PO DAILYP PRN PRN Reason: Constipation Metoprolol Succinate (Metoprolol Succinate 25 Mg Tab.Xl.24h) 25 mg PO DAILY [facility] Last Admin: 12/15/21 08:27 Dose: 25 mg Morphine Sulfate (Morphine 4 Mg/Ml Vial) 0 mg IV Q3HP PRN PRN Reason: Pain Last Admin: 12/15/21 08:26 Dose: 4 mg Morphine Sulfate (Morphine 4 Mg/Ml Vial) 4 mg IV Q2HP PRN; Protocol PRN Reason: Per Pain Protocol Last Admin: 12/14/21 01:37 Dose: 4 mg Nicotine (Nicotine 21 Mg Patch) 21 mg TOPICAL DAILY@1000 [facility] Last Admin: 12/15/21 10:14 Dose: 21 mg Ondansetron HCl (Ondansetron 4 Mg/2 Ml Vial) 4 mg IV Q4HP PRN PRN Reason: Nausea And Vomiting Polyethylene Glycol (Polyethylene Glycol 3350 17 Gm Packet) 17 gm PO DAILYP PRN PRN Reason: Constipation Last Admin: 12/15/21 08:32 Dose: 17 gm Potassium Chloride (Potassium Chloride 20 Meq Tablet) 40 meq PO UD PRN PRN Reason: Potssium is 3-3.5 Potassium Chloride (Potassium Chloride 20 Meq Tablet) 40 meq PO UD PRN PRN Reason: Potassium < 3 Senna (Sennosides 1 Tablet) 2 tab PO DAILYP PRN PRN Reason: Constipation Sodium Chloride (0.9 % Sodium Chloride 10 Ml Syringe) 10 ml IV Q8 [facility] Last Admin: 12/15/21 05:50 Dose: 10 ml Sodium Chloride (Sodium Chloride 1 Gm Tablet) 2 gm PO TID [facility] Thiamine HCl (Thiamine 100 Mg Tablet) 100 mg PO DAILY [facility] Last Admin: 12/15/21 08:27 Dose: 100 mg A/P Assessment and plan (1) Macrocytic anemia: Status: Acute (2) MDS (myelodysplastic syndrome): Status: Acute (3) Closed intertrochanteric fracture of left femur: Status: Acute Comment: Mobilize with PT Qualifiers: Encounter type: initial encounter Fracture alignment: nondisplaced Qualified Code(s): S72.145A - Nondisplaced intertrochanteric fracture of left femur, initial encounter for closed fracture (4) Closed olecranon fracture: Status: Acute Comment: Nerve injury due to block versus slow to wake up motor. will have anesthesia evaluate. Qualifiers: Encounter type: initial encounter Laterality: left Qualified Code(s): S52.022A - Displaced fracture of olecranon process without intraarticular extension of left ulna, initial encounter for closed fracture (5) Essential hypertension: Status: Acute (6) Thrombocytopenia: Status: Acute (7) Hyponatremia: Status: Acute (8) Cigarette smoker: Status: Acute (9) Delirium tremens: Status: Ruled-out (10) HCAP (healthcare-associated pneumonia): Status: Acute Narrative A/P Narrative: Assessment and Plans: 1. Left hip and elbow fractures s/p ORIF by Dr. Tarango on 12/11: Post surgical management as per primary team Continue narcotics for symptoms management Physical therapy Occupational therapy 2. Myelodysplastic syndrome with anemia and thrombocytopenia: Iron/folate/thiamine replacements cbc w/ auto diff daily to trend H/H and plt count 3. Essential hypertension: Normotensive Metoprolol XL 4. Cigarette smoker status: Nicotine replacement therapy 5. Hyponatremia: Saline lock, sodium chloride 2gm PO TID Daily CMP to trend serum sodium level 6. Delirium tremens: RESOLVED d/c CIWA protocol Folate Thiamine Multivitamin with iron 7. Bilateral pneumonia: DDx: pulmonary edema Blood cultures X2, no growth to date cbc w/ auto diff daily Incentive spirometry Supplemental oxygen as needed Zosyn as empiric antibiotics Tylenol PRN fever GI ppx: not currently indicated DVT ppx: Lovenox Code status: Full Prognosis: guarded Disposition: inpatient med surg; PT OT Time Spent With Patient Time: Total time spent is greater than 50% in coordination of care (as documented) at patient's floor/unit and/or counseling patient: Total time spent with greater than 50% in coordination of care (as documented) at patient's floor/unit and/or counseling patient:: 35 - 50 minutes QUALITY VTE Deep Vein Thrombosis/Pulmonary Embolism Present on Admission: No
[2021-12-15] MEDS: SODIUM CHLORIDE 1 GM TABLET PO SCH ×2 (14:02→20:46)
[2021-12-15] MEDS: IPRATROPIUM/ALBUTEROL 3 ML AMPUL.NEB NEB PRN ×2 (14:26→21:49)
[2021-12-16] MEDS: HYDROcodone/APAP 5/325MG TABLET PO PRN ×2 (03:41→23:13)
[2021-12-16] MEDS: 0.9 % SODIUM CHLORIDE 10 ML SYRINGE IV SCH ×3 (05:54→22:03)
[2021-12-16] MEDS: PIPERACILLIN SODIUM/TAZOBACTAM 3.375 GM in DEXTROSE 5% IN WATER 50 ML IV SCH ×3 (05:54→22:03)
[2021-12-16 07:56] LABS: Basophils # (Auto) 0.03 K/mcL (0.00-0.30); Basophils % (Auto) 0.3 % (0.0-2.0); Eosinophils % (Auto) 2.2 % (0.0-7.0); Hematocrit 22.7 % (34.1-44.9); Hemoglobin 7.7 g/dL (11.2-15.7); Lymphocytes # (Auto) 0.32 K/mcL (1.50-4.80); Lymphocytes % (Auto) 3.6 % (15.5-49.0); Mean Cell Volume 115.2 fL (80.0-100.0); Mean Corpuscular HGB Conc 33.9 g/dL (31.0-36.0); Mean Platelet Volume 10.8 fL (8.8-12.5); Monocytes # (Auto) 0.43 K/mcL (0.10-0.90); Monocytes % (Auto) 4.8 % (1.0-12.0); Neutrophils % (Auto) 88.3 % (38.0-78.0); Platelet Count 93 K/mcL (140-440); RBC 1.97 M/mcL (3.59-5.38); Red Cell Distribution Width 21.3 % (11.5-14.5); WBC 8.9 K/mcL (4.5-11.0)
[2021-12-16 08:21] LABS: ALT/SGPT 11 U/L (<40); AST/SGOT 33 U/L (<32); Albumin 1.7 gm/dL (3.2-5.2); Albumin/Globulin Ratio 0.6 (1.0-2.3); Alkaline Phosphatase 145 U/L (39-117); Bilirubin,Total 0.9 mg/dL (0.1-1.0); Blood Urea Nitrogen 20 mg/dL (8-23); Calcium 7.9 mg/dL (8.6-10.4); Carbon Dioxide 21 mmol/L (22-30); Chloride 100 mmol/L (96-108); Globulin 2.9 gm/dL (2.2-3.7); Glomerular Filtration Rate 50; Glucose 99 mg/dL (70-105); Phosphorous 3.6 mg/dL (2.5-4.5)
[2021-12-16] MEDS: MULTIVIT,THER IRON,CA,FA & MIN 1 TABLET PO SCH (10:03)
[2021-12-16] MEDS: DOCUSATE SODIUM 100 MG CAPSULE PO SCH ×2 (10:05→22:03)
[2021-12-16] MEDS: THIAMINE 100 MG TABLET PO SCH (10:05)
[2021-12-16] MEDS: SODIUM CHLORIDE 1 GM TABLET PO SCH ×3 (10:05→22:03)
[2021-12-16] MEDS: METOPROLOL SUCCINATE 25 MG TAB.XL.24H PO SCH (10:05)
[2021-12-16] MEDS: NICOTINE 21 MG PATCH TOPICAL SCH (10:06)
[2021-12-16] MEDS: ENOXAPARIN 40 MG/0.4 ML SYRINGE SQ SCH (10:06)
[2021-12-16] MEDS: FOLIC ACID 1 MG TABLET PO SCH (10:06)
--- NOTE | 2021-12-16 11:31 | Internal Med Progress Note ---
SUBJECTIVE Subjective Patient information: Note initiated : 12/16/21 at 11:24 am Service Date, if different from initiated Date: [] Patient: Nadia Miller a 71 y/o F admitted on 12/11/21 for Fall, left foot rotation. Chief Complaint: [] Interval history: Ms. Kirk Jaramillo is a 71 year old F Who presents to the ED with left hip and elbow pain. Patient states she is getting up out of her recliner to go to bed last night and got caught up in a blanket tripped and fell on her left side with immediate pain. She is slept on through the night and came in the ER because the worsening pain. Found to have a left hip fracture intertrochanteric and a left elbow fracture. Labs remarkable for anemia which is macrocytic and is chronic she has a history of MDS and follows with oncology. She has a hyponatremia which appears to be chronic and also in metabolic acidosis. 12/12 Patient slept okay. No overnight event or new complaints. Hemoglobin 7.2. Urine output borderline low during the night but is picking up. Transfuse 1 unit. Sodium better and acid-base status improving. Appears to be folate deficient. Supplemental folate. 12/13: Serum sodium level 128 this morning. Hemoglobin 8.9, platelet count 99. s/p ORIF left hip/left elbow by Dr. Tarango on 12/11. Patient is lethargic now; was c/o 10/10 sharp pain left hip and left elbow. Denies constipation. Denies shortness of breath. Continue Narcotics with [place] and IV Morphine for symptoms management. Nicotine patch for cigarette craving. Pending physical and occupational therapies. 12/14: Fever with T-max 38.7 this morning. She is on 2 L/min of oxygen's. She is coming of severe sharp pain of the left elbow. Denies any left hip pain. Continue CIWA protocol for delirium tremens/alcohol withdrawal. Blood culture x2, chest x-ray, and start Zosyn as empiric antibiotics. Continue Narcotics with [place] and IV Morphine for symptoms management. Nicotine patch for cigarette craving. Pending physical and occupational therapies. 12/15: Low grade fever Tmax 37.9 overnight. Blood cultures no growth to date. Chest x- ray showing bilateral pulmonary edema versus infiltrates. Serum sodium 127. CIWA score=0. She is on room air. She is coming of severe sharp pain of the left elbow. Denies any left hip pain. d/c CIWA protocol. Continue Zosyn and supplemental oxygen therapy as needed while monitoring blood culture results. Sodium chloride 2gm PO TID and daily CMP to trend serum sodium level. Continue Narcotics with [place] and IV Morphine for symptoms management. Pending physical and occupational therapies. 12/16: Afebrile overnight. Blood culture no growth today. Serum sodium level 128. She is on 2 L/min of oxygen. Nurse reported that she have some degree of dysphagia. She also is not eating or drinking much as per nursing staff report. She denies any abdominal distention or constipations but also she does not have bowel movement for almost a week. She is complaining of moderate sharp pain left elbow and left hip. She denies any shortness of breath. She denies any fever or chills or diaphoresis. Denies any cough or wheezing. Continue Zosyn and supplemental oxygen therapy as needed while monitoring blood culture results. Sodium chloride 2gm PO TID and daily CMP to trend serum sodium level. Speech therapy evaluation and treatment. Okay for family to bring outside food as long as it is compatible with SLT recs. Hemoglobin worsening from 9.0- 7.7 today, no surgical wound blood loss as far as I could appreciated. Patient mentioned that she is supposed to have a weekly infusions for her anemia associated with her breast cancer. We will look into the outside hospital record to see what medication it is and then I will check with our pharmacy to see if this is available here. Constitutional Vitals: Vital Signs Temp Pulse Resp BP Pulse Ox O2 Del Method O2 Flow Rate 36.5 C 96 H 18 114/77 93 2 12/16/21 07:59 12/16/21 07:59 12/16/21 07:59 12/16/21 07:59 12/16/21 07:59 12/16/21 07:59 12/16/21 07:59 Period Temp Pulse Resp BP Sys/Mcpherson Pulse Ox O2 Del Method O2 Flow Rate Last 24 Hr 36.2 C-37.6 C 90-120 16-20 94-119/57-80 90-95 Nasal Cannula- Room Air 2-2 Intake and Output 12/15/21 12/16/21 12/16/21 21:59 05:59 13:59 Intake Total 225 150 50 Output Total 400 Balance -175 150 50 Weight 49.623 kg Intake & Output: Intake & Output 12/15/21 12/16/21 12/16/21 21:59 05:59 13:59 Intake Total 225 150 50 Output Total 400 Balance -175 150 50 Weight 49.623 kg Intake: IV 50 50 50 Zosyn 3.375 gm In Dextrose 5% 50 50 50 in Water 50 ml @ 100 mls/hr IV Q8H [facility] Rx#:[id number] Oral 175 100 Output: Void Amount 400 Other: Urine Appearance Clear Urine Color Dark Yellow Head Head exam: Present atraumatic and normal inspection Eye Eye exam: Present normal appearance ENT ENT exam: Present mucous membranes moist, normal exam and normal external ear exam Additional comments: Nasal cannula in place Neck Neck exam: Present normal inspection Respiratory Respiratory exam: Present rhonchi; Absent prolonged expiratory phase Cardiovascular Cardiovascular exam: Present normal rate and rhythm GI/Abdominal GI/Abdominal exam: Present normal bowel sounds Extremities Exam Extremities exam: Present tenderness; Absent full ROM or normal inspection Additional comments: Sling of left elbow Left elbow and left hip covered by surgical dressing Back Exam Back exam: Present normal inspection Neurological Exam Neurological exam: Present alert and oriented X3 Skin Skin exam: Present intact and warm OBJ DATA Labs CBC & Chem 7: 12/16/21 05:31 12/16/21 05:31 Labs: Abnormal Lab Results 12/16/21 12/16/21 12/15/21 05:31 05:31 05:18 WBC RBC 1.97 L Hgb 7.7 L Hct 22.7 L MCV 115.2 H MCH 39.1 H RDW 21.3 H Plt Count 93 L Immature Gran % (Auto) 0.8 H Neut % (Auto) 88.3 H Lymph % (Auto) 3.6 L Lymph # (Auto) 0.32 L Immature Gran # 0.07 H Absolute Neutrophils Sodium 128 L 127 L Carbon Dioxide 21 L 18 L Anion Gap 7.0 L Calcium 7.9 L 7.9 L Total Bilirubin 1.1 H AST 33 H 39 H Alkaline Phosphatase 145 H 172 H Total Protein 4.6 L 4.9 L Albumin 1.7 L 2.1 L Albumin/Globulin Ratio 0.6 L 0.8 L 12/15/21 12/13/21 05:18 13:00 WBC 12.4 H RBC 2.25 L Hgb 9.0 L Hct 27.4 L MCV 121.8 H MCH 40.0 H RDW 21.9 H Plt Count 108 L Immature Gran % (Auto) 0.7 H Neut % (Auto) 90.1 H Lymph % (Auto) 4.3 L Lymph # (Auto) 0.54 L Immature Gran # 0.09 H Absolute Neutrophils 11.20 H Sodium 129 L Carbon Dioxide Anion Gap Calcium 8.0 L Total Bilirubin AST Alkaline Phosphatase Total Protein Albumin Albumin/Globulin Ratio Meds: Medications Acetaminophen (Acetaminophen 325 Mg Tablet) 650 mg PO Q6HP PRN; Protocol PRN Reason: Per Pain Protocol/Fever > 101 Last Admin: 12/14/21 12:03 Dose: 650 mg Hydrocodone Bitart/Acetaminophen (Hydrocodone/Apap 5/325mg Tablet) 1 tab PO Q4HP PRN PRN Reason: PAIN LEVEL 3-6 Last Admin: 12/16/21 03:41 Dose: 1 tab Albuterol/Ipratropium (Ipratropium/Albuterol 3 Ml Ampul.Neb) 3 ml NEB Q4HP PRN PRN Reason: Shortness Of Breath Last Admin: 12/15/21 21:49 Dose: 3 ml Bisacodyl (Bisacodyl 10 Mg Supp.Rect) 10 mg [place] DAILYP PRN PRN Reason: Constipation Chlordiazepoxide HCl (Chlordiazepoxide 25 Mg Capsule) 25 mg PO Q4HP PRN PRN Reason: Alcohol Withdrawal/Assess CIWA Docusate Sodium (Docusate Sodium 100 Mg Capsule) 100 mg PO BID [facility] Last Admin: 12/16/21 10:05 Dose: 100 mg Enoxaparin Sodium (Enoxaparin 40 Mg/0.4 Ml Syringe) 40 mg SQ DAILY [facility] Last Admin: 12/16/21 10:06 Dose: Not Given Folic Acid (Folic Acid 1 Mg Tablet) 5 mg PO DAILY [facility] Last Admin: 12/16/21 10:06 Dose: 5 mg Haloperidol Lactate (Haloperidol Lactate 5 Mg/Ml Vial) 0.5 mg IM Q2HP PRN PRN Reason: Alcohol Withdrawal/Assess CIWA Hydralazine HCl (Hydralazine 20 Mg/Ml Vial) 10 mg IV Q4-6HP PRN PRN Reason: Hypertension Potassium Chloride 40 meq/ (Dextrose) 520 mls @ 130 mls/hr IV UD PRN PRN Reason: Potassium < 3 Magnesium Sulfate (Magnesium Sulfate) 2 gm in 50 mls @ 50 mls/hr IV UD PRN PRN Reason: Magnesium </= 1.6 Piperacillin Sod/Tazobactam (Sod 3.375 gm/ Dextrose) 50 mls @ 100 mls/hr IV Q8H [facility]; Protocol Last Infusion: 12/16/21 07:07 Dose: Infused Iron Carb/Multivit/[employer]/Folic Acid (Multivit,Ther Iron,Ca,Fa & Min 1 Tablet) 1 tab PO DAILY [facility] Last Admin: 12/16/21 10:03 Dose: 1 tab Lactulose (Lactulose 20 Gm/30 Ml Oral.Tia) 10 gm PO DAILYP PRN PRN Reason: Constipation Lorazepam (Lorazepam 2 Mg/Ml Vial) 0 mg IV Q4HP PRN; Protocol PRN Reason: Alcohol Withdrawal/Assess CIWA Magnesium Hydroxide (Magnesium Hydroxide 30 Ml Oral.Susp) 30 ml PO DAILYP PRN PRN Reason: Constipation Metoprolol Succinate (Metoprolol Succinate 25 Mg Tab.Xl.24h) 25 mg PO DAILY [facility] Last Admin: 12/16/21 10:05 Dose: 25 mg Morphine Sulfate (Morphine 4 Mg/Ml Vial) 0 mg IV Q3HP PRN PRN Reason: Pain Last Admin: 12/15/21 08:26 Dose: 4 mg Morphine Sulfate (Morphine 4 Mg/Ml Vial) 4 mg IV Q2HP PRN; Protocol PRN Reason: Per Pain Protocol Last Admin: 12/14/21 01:37 Dose: 4 mg Nicotine (Nicotine 21 Mg Patch) 21 mg TOPICAL DAILY@1000 [facility] Last Admin: 12/16/21 10:06 Dose: 21 mg Ondansetron HCl (Ondansetron 4 Mg/2 Ml Vial) 4 mg IV Q4HP PRN PRN Reason: Nausea And Vomiting Polyethylene Glycol (Polyethylene Glycol 3350 17 Gm Packet) 17 gm PO DAILYP PRN PRN Reason: Constipation Last Admin: 12/15/21 08:32 Dose: 17 gm Potassium Chloride (Potassium Chloride 20 Meq Tablet) 40 meq PO UD PRN PRN Reason: Potssium is 3-3.5 Potassium Chloride (Potassium Chloride 20 Meq Tablet) 40 meq PO UD PRN PRN Reason: Potassium < 3 Senna (Sennosides 1 Tablet) 2 tab PO DAILYP PRN PRN Reason: Constipation Sodium Chloride (0.9 % Sodium Chloride 10 Ml Syringe) 10 ml IV Q8 [facility] Last Admin: 12/16/21 05:54 Dose: 10 ml Sodium Chloride (Sodium Chloride 1 Gm Tablet) 2 gm PO TID [facility] Last Admin: 12/16/21 10:05 Dose: 2 gm Thiamine HCl (Thiamine 100 Mg Tablet) 100 mg PO DAILY [facility] Last Admin: 12/16/21 10:05 Dose: 100 mg A/P Assessment and plan (1) Macrocytic anemia: Status: Acute (2) MDS (myelodysplastic syndrome): Status: Acute (3) Closed intertrochanteric fracture of left femur: Status: Acute Comment: Mobilize with PT Qualifiers: Encounter type: initial encounter Fracture alignment: nondisplaced Qualified Code(s): S72.145A - Nondisplaced intertrochanteric fracture of left femur, initial encounter for closed fracture (4) Closed olecranon fracture: Status: Acute Comment: Nerve injury due to block versus slow to wake up motor. will have anesthesia evaluate. Qualifiers: Encounter type: initial encounter Laterality: left Qualified Code(s): S52.022A - Displaced fracture of olecranon process without intraarticular extension of left ulna, initial encounter for closed fracture (5) Essential hypertension: Status: Acute (6) Thrombocytopenia: Status: Acute (7) Hyponatremia: Status: Acute (8) Cigarette smoker: Status: Acute (9) Delirium tremens: Status: Ruled-out (10) HCAP (healthcare-associated pneumonia): Status: Acute Narrative A/P Narrative: Assessment and Plans: 1. Left hip and elbow fractures s/p ORIF by Dr. Tarango on 12/11: Post surgical management as per primary team Continue narcotics for symptoms management Physical therapy Occupational therapy 2. Myelodysplastic syndrome with anemia and thrombocytopenia: Iron/folate/thiamine replacements cbc w/ auto diff daily to trend H/H and plt count Hemoglobin worsening from 9.0-7.7 today, no surgical wound blood loss as far as I could appreciated. Patient mentioned that she is supposed to have a weekly infusions for her anemia associated with her breast cancer. We will look into the outside hospital record to see what medication it is and then I will check with our pharmacy to see if this is available here. Hold Lovenox for now for worsening anemia. 3. Essential hypertension: Normotensive Metoprolol XL 4. Cigarette smoker status: Nicotine replacement therapy 5. Hyponatremia: Saline lock, sodium chloride 2gm PO TID Daily CMP to trend serum sodium level 6. Delirium tremens: RESOLVED d/c CIWA protocol Folate Thiamine Multivitamin with iron 7. Bilateral pneumonia: DDx: pulmonary edema Blood cultures X2, no growth to date cbc w/ auto diff daily Incentive spirometry Supplemental oxygen as needed Zosyn as empiric antibiotics Tylenol PRN fever 8. Constipation: Laxatives and stool softeners available GI ppx: not currently indicated DVT ppx: Hold Lovenox for now for worsening anemia Code status: Full Prognosis: guarded Disposition: inpatient med surg; PT OT Time Spent With Patient Time: Total time spent is greater than 50% in coordination of care (as documented) at patient's floor/unit and/or counseling patient: Total time spent with greater than 50% in coordination of care (as documented) at patient's floor/unit and/or counseling patient:: 25 - 35 minutes QUALITY VTE Deep Vein Thrombosis/Pulmonary Embolism Present on Admission: No
[2021-12-16] MEDS: POLYETHYLENE GLYCOL 3350 17 GM PACKET PO PRN (15:29)
[2021-12-16] MEDS: morphine 4 MG/ML VIAL IV PRN (15:30)
[2021-12-16] MEDS: ACETAMINOPHEN 325 MG TABLET PO PRN (16:17)
[2021-12-17] MEDS: PIPERACILLIN SODIUM/TAZOBACTAM 3.375 GM in DEXTROSE 5% IN WATER 50 ML IV SCH ×3 (05:47→22:11)
[2021-12-17] MEDS: 0.9 % SODIUM CHLORIDE 10 ML SYRINGE IV SCH ×3 (05:47→20:12)
[2021-12-17 07:24] LABS: ALT/SGPT 18 U/L (<40); AST/SGOT 65 U/L (<32); Albumin 1.8 gm/dL (3.2-5.2); Albumin/Globulin Ratio 0.6 (1.0-2.3); Alkaline Phosphatase 199 U/L (39-117); Bilirubin,Total 0.8 mg/dL (0.1-1.0); Blood Urea Nitrogen 18 mg/dL (8-23); Calcium 8.2 mg/dL (8.6-10.4); Carbon Dioxide 20 mmol/L (22-30); Chloride 104 mmol/L (96-108); Globulin 2.8 gm/dL (2.2-3.7); Glomerular Filtration Rate 50; Glucose 101 mg/dL (70-105)
[2021-12-17 07:25] LABS: Phosphorous 3.3 mg/dL (2.5-4.5)
[2021-12-17] MEDS: METOPROLOL SUCCINATE 25 MG TAB.XL.24H PO SCH (09:05)
[2021-12-17] MEDS: ACETAMINOPHEN 325 MG TABLET PO PRN (09:05)
[2021-12-17] MEDS: DOCUSATE SODIUM 100 MG CAPSULE PO SCH ×2 (09:05→20:12)
[2021-12-17] MEDS: MULTIVIT,THER IRON,CA,FA & MIN 1 TABLET PO SCH (09:05)
[2021-12-17] MEDS: THIAMINE 100 MG TABLET PO SCH (09:05)
[2021-12-17] MEDS: FOLIC ACID 1 MG TABLET PO SCH (09:05)
[2021-12-17] MEDS: SODIUM CHLORIDE 1 GM TABLET PO SCH ×3 (09:07→20:12)
[2021-12-17] MEDS: IPRATROPIUM/ALBUTEROL 3 ML AMPUL.NEB NEB PRN (09:18)
[2021-12-17 09:37] LABS: Basophils # (Auto) 0.04 K/mcL (0.00-0.30); Basophils % (Auto) 0.6 % (0.0-2.0); Eosinophils # (Auto) 0.56 K/mcL (0.00-0.70); Hematocrit 23.6 % (34.1-44.9); Lymphocytes # (Auto) 0.52 K/mcL (1.50-4.80); Lymphocytes % (Auto) 7.4 % (15.5-49.0); Mean Cell Volume 115.1 fL (80.0-100.0); Mean Corpuscular HGB Conc 33.9 g/dL (31.0-36.0); Mean Platelet Volume 10.8 fL (8.8-12.5); Monocytes # (Auto) 0.34 K/mcL (0.10-0.90); Monocytes % (Auto) 4.8 % (1.0-12.0); Neutrophils % (Auto) 78.6 % (38.0-78.0); Platelet Count 103 K/mcL (140-440); RBC 2.05 M/mcL (3.59-5.38)
[2021-12-17] MEDS: ENOXAPARIN 40 MG/0.4 ML SYRINGE SQ SCH (10:11)
[2021-12-17] MEDS: NICOTINE 21 MG PATCH TOPICAL SCH (10:22)
[2021-12-17] MEDS: HYDROcodone/APAP 5/325MG TABLET PO PRN ×2 (14:51→20:12)
--- NOTE | 2021-12-17 15:26 | Orthopedic Progress Note ---
SUBJECTIVE Subjective Patient information: Note initiated : 12/17/21 at 3:23 pm Service Date, if different from initiated Date: [] Patient: Nadia Miller 71 y/o F admitted on 12/11/21 for Fall, left foot rotation. Chief Complaint: [] Interval history: c/o pain Constitutional Vitals: Vital Signs Temp Pulse Resp BP Pulse Ox O2 Del Method O2 Flow Rate 98.2 F 115 H 22 111/75 95 2 12/17/21 12:00 12/17/21 12:00 12/17/21 12:00 12/17/21 12:00 12/17/21 12:00 12/17/21 12:00 12/17/21 09:18 Period Temp Pulse Resp BP Sys/Mcpherson Pulse Ox O2 Del Method O2 Flow Rate Last 24 Hr 98.2 F-100.7 F 93-119 20- 102-151/70-92 95-99 Nasal Cannula- Room Air 2-2 Intake and Output 12/17/21 12/17/21 12/17/21 05:59 13:59 21:59 Intake Total 920 290 Output Total 400 Balance 520 290 Intake & Output: Intake & Output 12/17/21 12/17/21 12/17/21 05:59 13:59 21:59 Intake Total 920 290 Output Total 400 Balance 520 290 Intake: Nourishment/Supplement quantity 220 (ml) IV 50 50 Zosyn 3.375 gm In Dextrose 5% 50 50 in Water 50 ml @ 100 mls/hr IV Q8H [facility] Rx#:[id number] Oral 650 240 Output: Urine/Stool Mix 400 Other: Meal Nourishment/Supplement Percent of Meal Consumed 100% Feeding Ability Independent Nourishment/Supplement name Ensure vanilla Stool Size Moderate Stool Color Brown Green Stool Consistency Dry and Hard Loose # Bowel Movements 1 General appearance: no acute distress Skin Additional comments: incision w/o erythema, clear serous drainage on dressings OBJ DATA Labs CBC & Chem 7: 12/17/21 05:04 12/17/21 05:04 Labs: Abnormal Lab Results 12/17/21 12/17/21 12/16/21 05:04 05:04 05:31 WBC RBC 2.05 L Hgb 8.0 L Hct 23.6 L MCV 115.1 H MCH 39.0 H RDW Plt Count 103 L Immature Gran % (Auto) 0.6 H Neut % (Auto) 78.6 H Lymph % (Auto) 7.4 L Eos % (Auto) 8.0 H Lymph # (Auto) 0.52 L Immature Gran # Absolute Neutrophils Sodium 132 L 128 L Carbon Dioxide 20 L 21 L Anion Gap 7.0 L Calcium 8.2 L 7.9 L Total Bilirubin AST 65 H 33 H Alkaline Phosphatase 199 H 145 H Total Protein 4.6 L 4.6 L Albumin 1.8 L 1.7 L Albumin/Globulin Ratio 0.6 L 0.6 L 12/16/21 12/15/21 12/15/21 05:31 05:18 05:18 WBC 12.4 H RBC 1.97 L 2.25 L Hgb 7.7 L 9.0 L Hct 22.7 L 27.4 L MCV 115.2 H 121.8 H MCH 39.1 H 40.0 H RDW 21.3 H 21.9 H Plt Count 93 L 108 L Immature Gran % (Auto) 0.8 H 0.7 H Neut % (Auto) 88.3 H 90.1 H Lymph % (Auto) 3.6 L 4.3 L Eos % (Auto) Lymph # (Auto) 0.32 L 0.54 L Immature Gran # 0.07 H 0.09 H Absolute Neutrophils 11.20 H Sodium 127 L Carbon Dioxide 18 L Anion Gap Calcium 7.9 L Total Bilirubin 1.1 H AST 39 H Alkaline Phosphatase 172 H Total Protein 4.9 L Albumin 2.1 L Albumin/Globulin Ratio 0.8 L Meds: Medications Acetaminophen (Acetaminophen 325 Mg Tablet) 650 mg PO Q6HP PRN; Protocol PRN Reason: Per Pain Protocol/Fever > 101 Last Admin: 12/17/21 09:05 Dose: 650 mg Hydrocodone Bitart/Acetaminophen (Hydrocodone/Apap 5/325mg Tablet) 1 tab PO Q4HP PRN PRN Reason: PAIN LEVEL 3-6 Last Admin: 12/17/21 14:51 Dose: 1 tab Albuterol/Ipratropium (Ipratropium/Albuterol 3 Ml Ampul.Neb) 3 ml NEB Q4HP PRN PRN Reason: Shortness Of Breath Last Admin: 12/17/21 09:18 Dose: 3 ml Bisacodyl (Bisacodyl 10 Mg Supp.Rect) 10 mg [place] DAILYP PRN PRN Reason: Constipation Chlordiazepoxide HCl (Chlordiazepoxide 25 Mg Capsule) 25 mg PO Q4HP PRN PRN Reason: Alcohol Withdrawal/Assess CIWA Docusate Sodium (Docusate Sodium 100 Mg Capsule) 100 mg PO BID [facility] Last Admin: 12/17/21 09:05 Dose: 100 mg Enoxaparin Sodium (Enoxaparin 40 Mg/0.4 Ml Syringe) 40 mg SQ DAILY [facility] Last Admin: 12/17/21 10:11 Dose: Not Given Folic Acid (Folic Acid 1 Mg Tablet) 5 mg PO DAILY [facility] Last Admin: 12/17/21 09:05 Dose: 5 mg Haloperidol Lactate (Haloperidol Lactate 5 Mg/Ml Vial) 0.5 mg IM Q2HP PRN PRN Reason: Alcohol Withdrawal/Assess CIWA Hydralazine HCl (Hydralazine 20 Mg/Ml Vial) 10 mg IV Q4-6HP PRN PRN Reason: Hypertension Potassium Chloride 40 meq/ (Dextrose) 520 mls @ 130 mls/hr IV UD PRN PRN Reason: Potassium < 3 Magnesium Sulfate (Magnesium Sulfate) 2 gm in 50 mls @ 50 mls/hr IV UD PRN PRN Reason: Magnesium </= 1.6 Piperacillin Sod/Tazobactam (Sod 3.375 gm/ Dextrose) 50 mls @ 100 mls/hr IV Q8H [facility]; Protocol Last Admin: 12/17/21 14:50 Dose: 100 mls/hr Iron Carb/Multivit/[place]/Folic Acid (Multivit,Ther Iron,Ca,Fa & Min 1 Tablet) 1 tab PO DAILY [facility] Last Admin: 12/17/21 09:05 Dose: 1 tab Lactulose (Lactulose 20 Gm/30 Ml Oral.Tia) 10 gm PO DAILYP PRN PRN Reason: Constipation Lorazepam (Lorazepam 2 Mg/Ml Vial) 0 mg IV Q4HP PRN; Protocol PRN Reason: Alcohol Withdrawal/Assess CIWA Magnesium Hydroxide (Magnesium Hydroxide 30 Ml Oral.Susp) 30 ml PO DAILYP PRN PRN Reason: Constipation Metoprolol Succinate (Metoprolol Succinate 25 Mg Tab.Xl.24h) 25 mg PO DAILY [facility] Last Admin: 12/17/21 09:05 Dose: 25 mg Morphine Sulfate (Morphine 4 Mg/Ml Vial) 4 mg IV Q2HP PRN; Protocol PRN Reason: Per Pain Protocol Last Admin: 12/16/21 15:30 Dose: 4 mg Nicotine (Nicotine 21 Mg Patch) 21 mg TOPICAL DAILY@1000 [facility] Last Admin: 12/17/21 10:22 Dose: 21 mg Ondansetron HCl (Ondansetron 4 Mg/2 Ml Vial) 4 mg IV Q4HP PRN PRN Reason: Nausea And Vomiting Polyethylene Glycol (Polyethylene Glycol 3350 17 Gm Packet) 17 gm PO DAILYP PRN PRN Reason: Constipation Last Admin: 12/16/21 15:29 Dose: 17 gm Potassium Chloride (Potassium Chloride 20 Meq Tablet) 40 meq PO UD PRN PRN Reason: Potssium is 3-3.5 Potassium Chloride (Potassium Chloride 20 Meq Tablet) 40 meq PO UD PRN PRN Reason: Potassium < 3 Senna (Sennosides 1 Tablet) 2 tab PO DAILYP PRN PRN Reason: Constipation Sodium Chloride (0.9 % Sodium Chloride 10 Ml Syringe) 10 ml IV Q8 [facility] Last Admin: 12/17/21 14:50 Dose: 10 ml Sodium Chloride (Sodium Chloride 1 Gm Tablet) 2 gm PO TID [facility] Last Admin: 12/17/21 14:51 Dose: 2 gm Thiamine HCl (Thiamine 100 Mg Tablet) 100 mg PO DAILY [facility] Last Admin: 12/17/21 09:05 Dose: 100 mg A/P Assessment and plan (1) Closed intertrochanteric fracture of left femur: Assessment and plan: POD#7 s/p ORIF L hip IT fx and olecranon fx-clear serous drainage w/o evidence of infection Plan: recommend ABD dressing changes, continue monitoring for infection, nutritional support d/c pending snf Status: Acute Comment: Mobilize with PT Qualifiers: Encounter type: initial encounter Fracture alignment: nondisplaced Qualified Code(s): S72.145A - Nondisplaced intertrochanteric fracture of left femur, initial encounter for closed fracture (2) Closed olecranon fracture: Status: Acute Comment: Nerve injury due to block versus slow to wake up motor. will have anesthesia evaluate. Qualifiers: Encounter type: initial encounter Laterality: left Qualified Code(s): S52.022A - Displaced fracture of olecranon process without intraarticular extension of left ulna, initial encounter for closed fracture Time Spent With Patient Time: Total time spent is greater than 50% in coordination of care (as documented) at patient's floor/unit and/or counseling patient:
--- NOTE | 2021-12-17 17:54 | Internal Med Progress Note ---
SUBJECTIVE Subjective Patient information: Note initiated : 12/17/21 at 5:49 pm Service Date, if different from initiated Date: [] Patient: Nadia Miller a 71 y/o F admitted on 12/11/21 for Fall, left foot rotation. Chief Complaint: [] Interval history: Ms. Kirk Jaramillo is a 71 year old F Who presents to the ED with left hip and elbow pain. Patient states she is getting up out of her recliner to go to bed last night and got caught up in a blanket tripped and fell on her left side with immediate pain. She is slept on through the night and came in the ER because the worsening pain. Found to have a left hip fracture intertrochanteric and a left elbow fracture. Labs remarkable for anemia which is macrocytic and is chronic she has a history of MDS and follows with oncology. She has a hyponatremia which appears to be chronic and also in metabolic acidosis. 12/12 Patient slept okay. No overnight event or new complaints. Hemoglobin 7.2. Urine output borderline low during the night but is picking up. Transfuse 1 unit. Sodium better and acid-base status improving. Appears to be folate deficient. Supplemental folate. 12/13: Serum sodium level 128 this morning. Hemoglobin 8.9, platelet count 99. s/p ORIF left hip/left elbow by Dr. Tarango on 12/11. Patient is lethargic now; was c/o 10/10 sharp pain left hip and left elbow. Denies constipation. Denies shortness of breath. Continue Narcotics with [place] and IV Morphine for symptoms management. Nicotine patch for cigarette craving. Pending physical and occupational therapies. 12/14: Fever with T-max 38.7 this morning. She is on 2 L/min of oxygen's. She is coming of severe sharp pain of the left elbow. Denies any left hip pain. Continue CIWA protocol for delirium tremens/alcohol withdrawal. Blood culture x2, chest x-ray, and start Zosyn as empiric antibiotics. Continue Narcotics with [place] and IV Morphine for symptoms management. Nicotine patch for cigarette craving. Pending physical and occupational therapies. 12/15: Low grade fever Tmax 37.9 overnight. Blood cultures no growth to date. Chest x- ray showing bilateral pulmonary edema versus infiltrates. Serum sodium 127. CIWA score=0. She is on room air. She is coming of severe sharp pain of the left elbow. Denies any left hip pain. d/c CIWA protocol. Continue Zosyn and supplemental oxygen therapy as needed while monitoring blood culture results. Sodium chloride 2gm PO TID and daily CMP to trend serum sodium level. Continue Narcotics with [place] and IV Morphine for symptoms management. Pending physical and occupational therapies. 12/16: Afebrile overnight. Blood culture no growth today. Serum sodium level 128. She is on 2 L/min of oxygen. Nurse reported that she have some degree of dysphagia. She also is not eating or drinking much as per nursing staff report. She denies any abdominal distention or constipations but also she does not have bowel movement for almost a week. She is complaining of moderate sharp pain left elbow and left hip. She denies any shortness of breath. She denies any fever or chills or diaphoresis. Denies any cough or wheezing. Continue Zosyn and supplemental oxygen therapy as needed while monitoring blood culture results. Sodium chloride 2gm PO TID and daily CMP to trend serum sodium level. Speech therapy evaluation and treatment. Okay for family to bring outside food as long as it is compatible with SLT recs. Hemoglobin worsening from 9.0- 7.7 today, no surgical wound blood loss as far as I could appreciated. Patient mentioned that she is supposed to have a weekly infusions for her anemia associated with her breast cancer. We will look into the outside hospital record to see what medication it is and then I will check with our pharmacy to see if this is available here. 12/17: Patient had a bowel movement overnight. Afebrile overnight. Patient is on room air at this evening. WBC 7.0. Hemoglobin 8.0. Sodium level 132. All cultures no growth today. Patient does have good appetite. She was having shortness of breath earlier but relieved by breathing treatments. Currently denies any shortness of breath. She denies any fever or chills or diaphoresis. Denies any cough or wheezing. She denies any left elbow or left hip pain at the moment. Continue Zosyn and supplemental oxygen therapy as needed while monitoring blood culture results. Patient mentioned that she is supposed to have a weekly infusions for her anemia associated with her breast cancer. We will look into the outside hospital record to see what medication it is and then I will check with our pharmacy to see if this is available here. Pending SNF placement. Constitutional Vitals: Vital Signs Temp Pulse Resp BP Pulse Ox O2 Del Method O2 Flow Rate 36.7 C 97 H 22 123/84 96 2 12/17/21 16:00 12/17/21 16:00 12/17/21 16:00 12/17/21 16:00 12/17/21 16:00 12/17/21 16:00 12/17/21 09:18 Period Temp Pulse Resp BP Sys/Mcpherson Pulse Ox O2 Del Method O2 Flow Rate Last 24 Hr 36.7 C-37.2 C 93-119 20-22 102-151/70-92 95-99 Nasal Cannula- Room Air 2-2 Intake and Output 12/17/21 12/17/21 12/17/21 05:59 13:59 21:59 Intake Total 920 290 290 Output Total 400 Balance 520 290 290 Intake & Output: Intake & Output 12/17/21 12/17/21 12/17/21 05:59 13:59 21:59 Intake Total 920 290 290 Output Total 400 Balance 520 290 290 Intake: Nourishment/Supplement quantity 220 (ml) IV 50 50 50 Zosyn 3.375 gm In Dextrose 5% 50 50 50 in Water 50 ml @ 100 mls/hr IV Q8H [facility] Rx#:[id number] Oral 650 240 240 Output: Urine/Stool Mix 400 Other: Meal Nourishment/Supplement Percent of Meal Consumed 100% Feeding Ability Independent Nourishment/Supplement name Ensure vanilla Stool Size Moderate Stool Color Brown Green Stool Consistency Dry and Hard Loose # Voids 2 # Bowel Movements 1 Head Head exam: Present atraumatic and normal inspection Eye Eye exam: Present normal appearance ENT ENT exam: Present mucous membranes moist, normal exam and normal external ear exam Neck Neck exam: Present normal inspection Respiratory Respiratory exam: Present normal respiratory exam Cardiovascular Cardiovascular exam: Present normal rate and rhythm GI/Abdominal GI/Abdominal exam: Present normal bowel sounds Extremities Exam Extremities exam: Present tenderness; Absent full ROM or normal inspection Additional comments: Sling of left elbow Left elbow and left hip covered by surgical dressing Back Exam Back exam: Present normal inspection Neurological Exam Neurological exam: Present alert and oriented X3 Skin Skin exam: Present intact and warm OBJ DATA Labs CBC & Chem 7: 12/17/21 05:04 12/17/21 05:04 Labs: Abnormal Lab Results 12/17/21 12/17/21 12/16/21 05:04 05:04 05:31 WBC RBC 2.05 L Hgb 8.0 L Hct 23.6 L MCV 115.1 H MCH 39.0 H RDW Plt Count 103 L Immature Gran % (Auto) 0.6 H Neut % (Auto) 78.6 H Lymph % (Auto) 7.4 L Eos % (Auto) 8.0 H Lymph # (Auto) 0.52 L Immature Gran # Absolute Neutrophils Sodium 132 L 128 L Carbon Dioxide 20 L 21 L Anion Gap 7.0 L Calcium 8.2 L 7.9 L Total Bilirubin AST 65 H 33 H Alkaline Phosphatase 199 H 145 H Total Protein 4.6 L 4.6 L Albumin 1.8 L 1.7 L Albumin/Globulin Ratio 0.6 L 0.6 L 12/16/21 12/15/21 12/15/21 05:31 05:18 05:18 WBC 12.4 H RBC 1.97 L 2.25 L Hgb 7.7 L 9.0 L Hct 22.7 L 27.4 L MCV 115.2 H 121.8 H MCH 39.1 H 40.0 H RDW 21.3 H 21.9 H Plt Count 93 L 108 L Immature Gran % (Auto) 0.8 H 0.7 H Neut % (Auto) 88.3 H 90.1 H Lymph % (Auto) 3.6 L 4.3 L Eos % (Auto) Lymph # (Auto) 0.32 L 0.54 L Immature Gran # 0.07 H 0.09 H Absolute Neutrophils 11.20 H Sodium 127 L Carbon Dioxide 18 L Anion Gap Calcium 7.9 L Total Bilirubin 1.1 H AST 39 H Alkaline Phosphatase 172 H Total Protein 4.9 L Albumin 2.1 L Albumin/Globulin Ratio 0.8 L Meds: Medications Acetaminophen (Acetaminophen 325 Mg Tablet) 650 mg PO Q6HP PRN; Protocol PRN Reason: Per Pain Protocol/Fever > 101 Last Admin: 12/17/21 09:05 Dose: 650 mg Hydrocodone Bitart/Acetaminophen (Hydrocodone/Apap 5/325mg Tablet) 1 tab PO Q4HP PRN PRN Reason: PAIN LEVEL 3-6 Last Admin: 12/17/21 14:51 Dose: 1 tab Albuterol/Ipratropium (Ipratropium/Albuterol 3 Ml Ampul.Neb) 3 ml NEB Q4HP PRN PRN Reason: Shortness Of Breath Last Admin: 12/17/21 09:18 Dose: 3 ml Bisacodyl (Bisacodyl 10 Mg Supp.Rect) 10 mg KS DAILYP PRN PRN Reason: Constipation Chlordiazepoxide HCl (Chlordiazepoxide 25 Mg Capsule) 25 mg PO Q4HP PRN PRN Reason: Alcohol Withdrawal/Assess CIWA Docusate Sodium (Docusate Sodium 100 Mg Capsule) 100 mg PO BID [facility] Last Admin: 12/17/21 09:05 Dose: 100 mg Enoxaparin Sodium (Enoxaparin 40 Mg/0.4 Ml Syringe) 40 mg SQ DAILY [facility] Last Admin: 12/17/21 10:11 Dose: Not Given Folic Acid (Folic Acid 1 Mg Tablet) 5 mg PO DAILY [facility] Last Admin: 12/17/21 09:05 Dose: 5 mg Haloperidol Lactate (Haloperidol Lactate 5 Mg/Ml Vial) 0.5 mg IM Q2HP PRN PRN Reason: Alcohol Withdrawal/Assess CIWA Hydralazine HCl (Hydralazine 20 Mg/Ml Vial) 10 mg IV Q4-6HP PRN PRN Reason: Hypertension Potassium Chloride 40 meq/ (Dextrose) 520 mls @ 130 mls/hr IV UD PRN PRN Reason: Potassium < 3 Magnesium Sulfate (Magnesium Sulfate) 2 gm in 50 mls @ 50 mls/hr IV UD PRN PRN Reason: Magnesium </= 1.6 Piperacillin Sod/Tazobactam (Sod 3.375 gm/ Dextrose) 50 mls @ 100 mls/hr IV Q8H [facility]; Protocol Last Infusion: 12/17/21 15:20 Dose: Infused Iron Carb/Multivit/[place]/Folic Acid (Multivit,Ther Iron,Ca,Fa & Min 1 Tablet) 1 tab PO DAILY [facility] Last Admin: 12/17/21 09:05 Dose: 1 tab Lactulose (Lactulose 20 Gm/30 Ml Oral.Tia) 10 gm PO DAILYP PRN PRN Reason: Constipation Lorazepam (Lorazepam 2 Mg/Ml Vial) 0 mg IV Q4HP PRN; Protocol PRN Reason: Alcohol Withdrawal/Assess CIWA Magnesium Hydroxide (Magnesium Hydroxide 30 Ml Oral.Susp) 30 ml PO DAILYP PRN PRN Reason: Constipation Metoprolol Succinate (Metoprolol Succinate 25 Mg Tab.Xl.24h) 25 mg PO DAILY [facility] Last Admin: 12/17/21 09:05 Dose: 25 mg Morphine Sulfate (Morphine 4 Mg/Ml Vial) 4 mg IV Q2HP PRN; Protocol PRN Reason: Per Pain Protocol Last Admin: 12/16/21 15:30 Dose: 4 mg Nicotine (Nicotine 21 Mg Patch) 21 mg TOPICAL DAILY@1000 [facility] Last Admin: 12/17/21 10:22 Dose: 21 mg Ondansetron HCl (Ondansetron 4 Mg/2 Ml Vial) 4 mg IV Q4HP PRN PRN Reason: Nausea And Vomiting Polyethylene Glycol (Polyethylene Glycol 3350 17 Gm Packet) 17 gm PO DAILYP PRN PRN Reason: Constipation Last Admin: 12/16/21 15:29 Dose: 17 gm Potassium Chloride (Potassium Chloride 20 Meq Tablet) 40 meq PO UD PRN PRN Reason: Potssium is 3-3.5 Potassium Chloride (Potassium Chloride 20 Meq Tablet) 40 meq PO UD PRN PRN Reason: Potassium < 3 Senna (Sennosides 1 Tablet) 2 tab PO DAILYP PRN PRN Reason: Constipation Sodium Chloride (0.9 % Sodium Chloride 10 Ml Syringe) 10 ml IV Q8 [facility] Last Admin: 12/17/21 14:50 Dose: 10 ml Sodium Chloride (Sodium Chloride 1 Gm Tablet) 2 gm PO TID [facility] Last Admin: 12/17/21 14:51 Dose: 2 gm Thiamine HCl (Thiamine 100 Mg Tablet) 100 mg PO DAILY [facility] Last Admin: 12/17/21 09:05 Dose: 100 mg A/P Assessment and plan (1) Macrocytic anemia: Status: Acute (2) MDS (myelodysplastic syndrome): Status: Acute (3) Closed intertrochanteric fracture of left femur: Status: Acute Comment: Mobilize with PT Qualifiers: Encounter type: initial encounter Fracture alignment: nondisplaced Qualified Code(s): S72.145A - Nondisplaced intertrochanteric fracture of left femur, initial encounter for closed fracture (4) Closed olecranon fracture: Status: Acute Comment: Nerve injury due to block versus slow to wake up motor. will have anesthesia evaluate. Qualifiers: Encounter type: initial encounter Laterality: left Qualified Code(s): S52.022A - Displaced fracture of olecranon process without intraarticular extens ion of left ulna, initial encounter for closed fracture (5) Essential hypertension: Status: Acute (6) Thrombocytopenia: Status: Acute (7) Hyponatremia: Status: Acute (8) Cigarette smoker: Status: Acute (9) Delirium tremens: Status: Ruled-out (10) HCAP (healthcare-associated pneumonia): Status: Acute Narrative A/P Narrative: Assessment and Plans: 1. Left hip and elbow fractures s/p ORIF by Dr. Tarango on 12/11: Post surgical management as per primary team Continue narcotics for symptoms management Pending SNF placement 2. Myelodysplastic syndrome with anemia and thrombocytopenia: Iron/folate/thiamine replacements cbc w/ auto diff daily to trend H/H and plt count Hemoglobin stablized today. Patient mentioned that she is supposed to have a weekly infusions for her anemia associated with her breast cancer. We will look into the outside hospital record to see what medication it is and then I will check with our pharmacy to see if this is available here. Hold Lovenox for now for worsening anemia. 3. Essential hypertension: Normotensive Metoprolol XL 4. Cigarette smoker status: Nicotine replacement therapy 5. Hyponatremia: Saline lock, sodium chloride 2gm PO TID Daily CMP to trend serum sodium level 6. Delirium tremens: RESOLVED d/c CIWA protocol Folate Thiamine Multivitamin with iron 7. Bilateral pneumonia: DDx: pulmonary edema Blood cultures X2, no growth to date cbc w/ auto diff daily Incentive spirometry Supplemental oxygen as needed Zosyn as empiric antibiotics Tylenol PRN fever 8. Constipation: Laxatives and stool softeners available GI ppx: not currently indicated DVT ppx: Hold Lovenox for now for worsening anemia Code status: Full Prognosis: stable Disposition: inpatient med surg; SNF Time Spent With Patient Time: Total time spent is greater than 50% in coordination of care (as documented) at patient's floor/unit and/or counseling patient: Total time spent with greater than 50% in coordination of care (as documented) at patient's floor/unit and/or counseling patient:: 25 - 35 minutes QUALITY VTE Deep Vein Thrombosis/Pulmonary Embolism Present on Admission: No
[2021-12-18] MEDS: IPRATROPIUM/ALBUTEROL 3 ML AMPUL.NEB NEB PRN (04:03)
[2021-12-18] MEDS: 0.9 % SODIUM CHLORIDE 10 ML SYRINGE IV SCH (05:55)
[2021-12-18] MEDS: PIPERACILLIN SODIUM/TAZOBACTAM 3.375 GM in DEXTROSE 5% IN WATER 50 ML IV SCH (05:55)
[2021-12-18] MEDS: HYDROcodone/APAP 5/325MG TABLET PO PRN ×2 (05:58→13:54)
[2021-12-18 07:43] LABS: Basophils # (Auto) 0.04 K/mcL (0.00-0.30); Basophils % (Auto) 0.5 % (0.0-2.0); Eosinophils # (Auto) 0.42 K/mcL (0.00-0.70); Eosinophils % (Auto) 5.1 % (0.0-7.0); Hematocrit 22.4 % (34.1-44.9); Hemoglobin 7.4 g/dL (11.2-15.7); Lymphocytes # (Auto) 0.29 K/mcL (1.50-4.80); Lymphocytes % (Auto) 3.6 % (15.5-49.0); Mean Cell Volume 116.7 fL (80.0-100.0); Monocytes # (Auto) 0.41 K/mcL (0.10-0.90); Neutrophils % (Auto) 85.3 % (38.0-78.0); Platelet Count 127 K/mcL (140-440); RBC 1.92 M/mcL (3.59-5.38); Red Cell Distribution Width 21.2 % (11.5-14.5); WBC 8.2 K/mcL (4.5-11.0)
[2021-12-18] MEDS: SODIUM CHLORIDE 1 GM TABLET PO SCH (08:43)
[2021-12-18] MEDS: THIAMINE 100 MG TABLET PO SCH (08:43)
[2021-12-18] MEDS: FOLIC ACID 1 MG TABLET PO SCH (08:43)
[2021-12-18] MEDS: DOCUSATE SODIUM 100 MG CAPSULE PO SCH (08:43)
[2021-12-18] MEDS: MULTIVIT,THER IRON,CA,FA & MIN 1 TABLET PO SCH (08:43)
[2021-12-18] MEDS: METOPROLOL SUCCINATE 25 MG TAB.XL.24H PO SCH (08:43)
[2021-12-18] MEDS: ENOXAPARIN 40 MG/0.4 ML SYRINGE SQ SCH (08:44)
[2021-12-18 08:46] LABS: ALT/SGPT 22 U/L (<40); AST/SGOT 60 U/L (<32); Albumin 1.6 gm/dL (3.2-5.2); Albumin/Globulin Ratio 0.5 (1.0-2.3); Alkaline Phosphatase 265 U/L (39-117); Bilirubin,Total 0.8 mg/dL (0.1-1.0); Blood Urea Nitrogen 21 mg/dL (8-23); Calcium 8.5 mg/dL (8.6-10.4); Carbon Dioxide 18 mmol/L (22-30); Chloride 105 mmol/L (96-108); Globulin 3.2 gm/dL (2.2-3.7); Glomerular Filtration Rate 50; Glucose 88 mg/dL (70-105)
--- NOTE | 2021-12-18 09:18 | Discharge Summary ---
Discharge Provider Provider IMPORTANT FOLLOW-UP INFORMATION FOR PCP: Patient information: Note initiated : 12/18/21 at 9:15 am Service Date, if different from initiated Date: [] Patient: Nadia Miller a 71 y/o F admitted on 12/11/21 for Fall, left foot rotation. Chief Complaint: [] Date of admission: 12/11/21 11:30 Discharge date: 12/18/21 Primary care physician: Hiwot Grimaldo Attending physician on admission: Carmelo Elizalde Consults: 12/11/21 Consult to Physician [CONS] Stat Comment: Consulting Provider: Theodore Tarango Reason For Exam: Physician to Consult Consult to Physician [CONS] Stat Comment: Consulting Provider: Carmelo Elizalde Reason For Exam: Physician to Consult Attending physician on discharge: Chi Magalys [facility] COURSE Hospital Course Hospital course: Ms. Kirk Jaramillo is a 71 year old F Who presents to the ED with left hip and elbow pain. Patient states she is getting up out of her recliner to go to bed last night and got caught up in a blanket tripped and fell on her left side with immediate pain. She is slept on through the night and came in the ER because the worsening pain. Found to have a left hip fracture intertrochanteric and a left elbow fracture. Labs remarkable for anemia which is macrocytic and is chronic she has a history of MDS and follows with oncology. She has a hyponatremia which appears to be chronic and also in metabolic acidosis. 12/12 Patient slept okay. No overnight event or new complaints. Hemoglobin 7.2. Urine output borderline low during the night but is picking up. Transfuse 1 unit. Sodium better and acid-base status improving. Appears to be folate deficient. Supplemental folate. 12/13: Serum sodium level 128 this morning. Hemoglobin 8.9, platelet count 99. s/p ORIF left hip/left elbow by Dr. Tarango on 12/11. Patient is lethargic now; was c/o 10/10 sharp pain left hip and left elbow. Denies constipation. Denies shortness of breath. Continue Narcotics with [place] and IV Morphine for symptoms management. Nicotine patch for cigarette craving. Pending physical and occupational therapies. 12/14: Fever with T-max 38.7 this morning. She is on 2 L/min of oxygen's. She is coming of severe sharp pain of the left elbow. Denies any left hip pain. Continue CIWA protocol for delirium tremens/alcohol withdrawal. Blood culture x2, chest x-ray, and start Zosyn as empiric antibiotics. Continue Narcotics with [place] and IV Morphine for symptoms management. Nicotine patch for cigarette craving. Pending physical and occupational therapies. 12/15: Low grade fever Tmax 37.9 overnight. Blood cultures no growth to date. Chest x- ray showing bilateral pulmonary edema versus infiltrates. Serum sodium 127. CIWA score=0. She is on room air. She is coming of severe sharp pain of the left elbow. Denies any left hip pain. d/c CIWA protocol. Continue Zosyn and supplemental oxygen therapy as needed while monitoring blood culture results. Sodium chloride 2gm PO TID and daily CMP to trend serum sodium level. Continue Narcotics with [place] and IV Morphine for symptoms management. Pending physical and occupational therapies. 12/16: Afebrile overnight. Blood culture no growth today. Serum sodium level 128. She is on 2 L/min of oxygen. Nurse reported that she have some degree of dysphagia. She also is not eating or drinking much as per nursing staff report. She denies any abdominal distention or constipations but also she does not have bowel movement for almost a week. She is complaining of moderate sharp pain left elbow and left hip. She denies any shortness of breath. She denies any fever or chills or diaphoresis. Denies any cough or wheezing. Continue Zosyn and supplemental oxygen therapy as needed while monitoring blood culture results. Sodium chloride 2gm PO TID and daily CMP to trend serum sodium level. Speech therapy evaluation and treatment. Okay for family to bring outside food as long as it is compatible with SLT recs. Hemoglobin worsening from 9.0- 7.7 today, no surgical wound blood loss as far as I could appreciated. Patient mentioned that she is supposed to have a weekly infusions for her anemia associated with her breast cancer. We will look into the outside hospital record to see what medication it is and then I will check with our pharmacy to see if this is available here. 12/17: Patient had a bowel movement overnight. Afebrile overnight. Patient is on room air at this evening. WBC 7.0. Hemoglobin 8.0. Sodium level 132. All cultures no growth today. Patient does have good appetite. She was having shortness of breath earlier but relieved by breathing treatments. Currently denies any shortness of breath. She denies any fever or chills or diaphoresis. Denies any cough or wheezing. She denies any left elbow or left hip pain at the moment. Continue Zosyn and supplemental oxygen therapy as needed while monitoring blood culture results. Patient mentioned that she is supposed to have a weekly infusions for her anemia associated with her breast cancer. We will look into the outside hospital record to see what medication it is and then I will check with our pharmacy to see if this is available here. Pending SNF placement. 12/18: Discharged to SNF Discharge diagnosis: left hip and elbow fracture; HCAP Time Spent with Patient Time attestation: Total time spent providing and/or coordinating discharge services: Time spent: Greater than 30 minutes EXAM Constitutional Vitals: Temp Pulse Resp BP Pulse Ox O2 Del Method O2 Flow Rate 37.3 C H 102 H 20 98/62 96 2 12/18/21 07:58 12/18/21 07:58 12/18/21 07:58 12/18/21 07:58 12/18/21 07:58 12/18/21 07:58 12/18/21 07:58 General appearance: cooperative and no acute distress Head Head exam: Present atraumatic and normocephalic Eye Eye exam: Present EOMI and PERRL ENT ENT exam: Present mucous membranes moist, normal exam and normal external ear exam Additional comments: Nasal cannula in place Neck Neck exam: Present normal inspection; Absent lymphadenopathy, tenderness or th yromegaly Respiratory Respiratory exam: Absent accessory muscle use, respiratory distress or wheezes Cardiovascular Cardiovascular exam: Present normal rate and rhythm; Absent JVD GI/Abdominal GI/Abdominal exam: Present normal bowel sounds and soft; Absent organomegaly or tenderness Extremities Exam Extremities exam: Present normal capillary refill and tenderness; Absent full ROM or normal inspection Additional comments: Sling of left elbow Left elbow and left hip covered by surgical dressing Neurological Exam Neurological exam: Present alert, CN II-XII intact and oriented X3; Absent motor sensory deficit Psychiatric Psychiatric exam: Present normal affect and normal mood; Absent anxious or depressed Skin Skin exam: Present dry and intact Discharge Data Data Completed and Pending Labs on day of discharge: Labs from last 24 hours 12/18/21 12/18/21 12/17/21 05:36 05:36 05:04 WBC 8.2 7.0 RBC 1.92 L 2.05 L Hgb 7.4 L 8.0 L Hct 22.4 L 23.6 L MCV 116.7 H 115.1 H MCH 38.5 H 39.0 H MCHC 33.0 33.9 RDW 21.2 H Plt Count 127 L 103 L MPV 11.0 10.8 Immature Gran % (Auto) 0.5 0.6 H Neut % (Auto) 85.3 H 78.6 H Lymph % (Auto) 3.6 L 7.4 L Jenkins % (Auto) 5.0 4.8 Eos % (Auto) 5.1 8.0 H Baso % (Auto) 0.5 0.6 Lymph # (Auto) 0.29 L 0.52 L Jenkins # (Auto) 0.41 0.34 Eos # (Auto) 0.42 0.56 Baso # (Auto) 0.04 0.04 Immature Gran # 0.04 0.04 Absolute Neutrophils 6.96 5.52 Sodium 134 Potassium 3.9 Chloride 105 Carbon Dioxide 18 L Anion Gap 11.0 BUN 21 Creatinine 1.1 GFR Calculation 50 Glucose 88 Calcium 8.5 L Phosphorus 3.0 Magnesium 2.0 Total Bilirubin 0.8 AST 60 H ALT 22 Alkaline Phosphatase 265 H Total Protein 4.8 L Albumin 1.6 L Globulin 3.2 Albumin/Globulin Ratio 0.5 L Preliminary micro results at discharge 12/14/21 12:56 Blood Culture - Preliminary Blood 12/14/21 12:49 Blood Culture - Preliminary Blood Discharge Plan Patient/Caregiver Discharge Instructions Activity: as instructed and other Diet: Regular Diet Prescriptions: New hydrocodone-acetaminophen 5-325 mg Tablet 1 tab PO Q6HP PRN (Reason: Pain Level 3-6) 7 Days Qty: 30 0RF folic acid 1 mg Tablet 5 mg PO DAILY 30 Days Qty: 30 0RF Thera M Plus (ferrous fumarat) 9 mg iron-400 mcg Tablet 1 tab PO DAILY Qty: 30 0RF nicotine 21 mg/24 hr Patch 24 Hour 21 mg topical DAILY@1000 Qty: 28 0RF sodium chloride 1,000 mg Tablet,Soluble 2,000 mg PO TID Qty: 30 0RF thiamine mononitrate (vit B1) 100 mg Tablet 100 mg PO DAILY Qty: 30 0RF levofloxacin 750 mg tablet 750 mg PO Q24H Qty: 7 0RF Continued metoprolol succinate 25 MG tablet extended release 24 hr 25 mg PO DAILY Discontinued tramadol 50 mg tablet 1 - 2 tab PO Q4-6HP PRN (Reason: Pain) Follow Up Plan Follow up with: Hiwot Grimaldo MD [Primary Care Provider] - Patient Disposition: Xfer SNF Rehab Potential: Good I certify that the patient requires SNF services: Yes Overall status at discharge: patient is progressing back to baseline Discharge Orders: Discharge Order (Routine); Ordered 12/18/21 Ordered By: Rob ORTIZ VTE Deep Vein Thrombosis/Pulmonary Embolism Present on Admission: No
[2021-12-18] MEDS: NICOTINE 21 MG PATCH TOPICAL SCH (10:47)
== END 2021-12-18 14:17 | DRG 480 ==
LOC: ED 08:41 → MEDSUR 11:30 → ICU 18:31 → MEDSUR 12-12 13:34
PROVIDERS: ADMIT Internal Medicine; ATTEND Internal Medicine